=== PATIENT | female | born 1990 | race Caucasian/White ===

== ENCOUNTER → 2020-10-21 14:17 | Outpatient (BNVA) | payer OTHER, SELFPAY | PROVIDERS: Visit Provider Obstetrics & Gynecology | DX: Z76.89 Persons encountering health services in other specified circumstances (principal) ==

== ENCOUNTER → 2020-10-28 08:51 | Outpatient (BNVA) | payer OTHER, SELFPAY | PROVIDERS: Visit Provider Obstetrics & Gynecology | DX: Z30.9 Encounter for contraceptive management, unspecified (principal) | CPT/HCPCS: 99212 ==

== ENCOUNTER → 2021-07-28 14:59 | Outpatient (BNVA) | payer OTHER, SELFPAY | PROVIDERS: PCP Internal Medicine; Visit Provider Obstetrics & Gynecology ==

== ENCOUNTER 2021-10-18 08:04 | Outpatient (REF) | payer OTHER, SELFPAY ==
[2021-10-18 08:16] LABS: MANUAL DIFF FLAG NO
[2021-10-18 10:04] LABS: Basophils Percent Auto 0.5 % (0-2); Eosinophils Absolute Auto 0.1 X10*3/uL (0.0-0.4); Eosinophils Percent Auto 0.7 % (0-4); Hematocrit 39.9 % (37.0-47.0); Imm Gran Abs Auto 0.04 X10*3/uL (0.00-0.03); Imm Gran Pct Auto 0.5 % (0.0-0.4); Lymphocytes Absolute Auto 2.2 X10*3/uL (1.2-4.9); Lymphocytes Percent Auto 29.6 % (20-40); Mean Corpuscular HGB Conc 32.6 g/dl (31.0-35.0); Mean Corpuscular Hemoglobin 29.5 pg (27.0-33.0); Mean Corpuscular Volume 90.5 fL (80.0-98.0); Mean Platelet Volume 9.7 fL (9.4-12.3); Monocytes Absolute Auto 0.5 X10*3/uL (0.1-1.2); Monocytes Percent Auto 6.1 % (2-11); Neutrophils Absolute Auto 4.8 x10*3/uL (2.0-8.3); Neutrophils Percent Auto 62.6 % (45-73); Platelet Count 295 X10*3/uL (160-400); Red Blood Count 4.41 X10*6/uL (4.20-5.50); White Blood Count 7.6 X10*3/uL (4.8-10.8)
[2021-10-18 10:29] LABS: Alanine Aminotransferase 10 U/L (0-31); Albumin Level 4.3 g/dL (3.5-5.0); Alkaline Phosphatase 56 U/L (39-117); Anion Gap 12 (12-20); Aspartate Amino Transferase 14 U/L (5-31); Bilirubin Total 0.6 mg/dL (0.0-1.0); Blood Urea Nitrogen 11 mg/dL (9-16); Carbon Dioxide 23 mmol/L (22-29); Chloride 106 mmol/L (96-108); Cholesterol 156 mg/dL; Estimated Glomerular Filt Rate > 60; Glucose Fasting 80 mg/dL (60-99); HDL Cholesterol 38 mg/dL; LDL Cholesterol Calculated 94 mg/dl; Potassium 4.2 mmol/L (3.3-5.1); Sodium 137 mmol/L (135-145); Total Protein 6.8 g/dL (6.5-8.0); Triglycerides 124 mg/dL
[2021-10-18 10:35] LABS: Thyroid Stimulating Hormone 0.97 uIU/mL (0.32-4.0)
== END 2021-10-18 08:05 | disposition home or self-care (01) ==
LOC: HO.LAB 08:04
PROVIDERS: PCP Internal Medicine; Visit Provider Internal Medicine
DX: Z00.00 Encounter for general adult medical examination without abnormal findings (principal); E11.9 Type 2 diabetes mellitus without complications; E03.9 Hypothyroidism, unspecified
CPT/HCPCS: 36415; 80053; 80061; 84443; 85025

== ENCOUNTER 2022-04-08 13:20 | Outpatient (REF) | payer OTHER, SELFPAY ==
[2022-04-10 12:41] LABS: Rubella IgG Antibody 1.71 Index
[2022-04-10 21:56] LABS: Mumps Virus IgG Antibody <9.00 AU/mL
== END 2022-04-08 13:21 | disposition home or self-care (01) ==
LOC: HO.LAB 13:20
PROVIDERS: PCP Internal Medicine; Visit Provider Internal Medicine
DX: Z01.84 Encounter for antibody response examination (principal); Z20.2 Contact with and (suspected) exposure to infections with a predominantly sexual mode of transmission
CPT/HCPCS: 36415; 86735; 86762; 86765

== ENCOUNTER 2022-09-19 09:18 | Outpatient (REF) | payer OTHER, SELFPAY ==
[2022-09-19 09:49] LABS: MANUAL DIFF FLAG NO
[2022-09-19 11:30] LABS: Basophils Percent Auto 0.4 % (0-2); Eosinophils Percent Auto 0.6 % (0-4); Hematocrit 42.1 % (37.0-47.0); Hemoglobin 14.2 g/dl (12.0-16.0); Imm Gran Abs Auto 0.03 X10*3/uL (0.00-0.03); Imm Gran Pct Auto 0.4 % (0.0-0.4); Lymphocytes Absolute Auto 2.2 X10*3/uL (1.2-4.9); Lymphocytes Percent Auto 31.4 % (20-40); Mean Corpuscular HGB Conc 33.7 g/dl (31.0-35.0); Mean Platelet Volume 9.9 fL (9.4-12.3); Monocytes Absolute Auto 0.4 X10*3/uL (0.1-1.2); Monocytes Percent Auto 5.4 % (2-11); Neutrophils Absolute Auto 4.4 x10*3/uL (2.0-8.3); Neutrophils Percent Auto 61.8 % (45-73); Platelet Count 309 X10*3/uL (160-400); Red Blood Count 4.73 X10*6/uL (4.20-5.50); Red Cell Distribution Width 12.7 % (11.0-16.0); White Blood Count 7.1 X10*3/uL (4.8-10.8)
[2022-09-19 12:45] LABS: Alanine Aminotransferase 9 U/L (0-31); Albumin Level 4.6 g/dL (3.5-5.0); Alkaline Phosphatase 60 U/L (39-117); Anion Gap 15 (12-20); Aspartate Amino Transferase 15 U/L (5-31); Bilirubin Total 0.4 mg/dL (0.0-1.0); Blood Urea Nitrogen 10 mg/dL (9-16); Calcium 9.5 mg/dL (8.4-10.2); Carbon Dioxide 24 mmol/L (22-29); Chloride 104 mmol/L (96-108); Cholesterol 163 mg/dL; Estimated Glomerular Filt Rate > 60; Glucose Fasting 75 mg/dL (60-99); HDL Cholesterol 45 mg/dL; LDL Cholesterol Calculated 98 mg/dl; Potassium 4.2 mmol/L (3.3-5.1); Sodium 139 mmol/L (135-145); Total Protein 7.3 g/dL (6.5-8.0); Triglycerides 101 mg/dL
[2022-09-19 12:52] LABS: Thyroid Stimulating Hormone 1.55 uIU/mL (0.32-4.0)
== END 2022-09-19 09:19 | disposition home or self-care (01) ==
LOC: HO.LAB 09:18
PROVIDERS: PCP Internal Medicine; Visit Provider Internal Medicine
DX: Z13.0 Encounter for screening for diseases of the blood and blood-forming organs and certain disorders involving the immune mechanism (principal); E03.9 Hypothyroidism, unspecified; E78.5 Hyperlipidemia, unspecified; I10 Essential (primary) hypertension
CPT/HCPCS: 36415; 80053; 80061; 84443; 85025

== ENCOUNTER 2023-08-16 12:57 | Outpatient (AMB) | payer OTHER, SELFPAY ==
[2023-08-16 12:59] VITALS: BP 118/68; PULSE 75; O2SAT 97; BMI 26.8
--- NOTE | 2023-08-16 12:59 | MHC.PC.OV ---
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 Required: No Plate Grainer Apprentice: Not Required per policy Accompanied by: Self / Same As Patient Allergies No Known Allergies [No Known Allergies*] Allergy (Verified 08/16/23 12:59) Medication List - Last Reconciled 08/16/23 by Jose Antonio Guadarrama MD L norgest/e.estradiol-e.estrad 0.15 mg-30 mcg (84)/10 mcg (7) (Seasonique) 1 tab PO DAILY 3 months ondansetron HCl (Zofran) 4 mg PO Q8H PRN triamcinolone acetonide 0.5% 1 appl topical TID triamcinolone acetonide 0.1% 1 appl topical DAILY Tobacco use date assessed: 08/13/22 Dental Screening Dental Screen Date: 08/16/23 Did you have a dental visit in the last 12 months?: Yes Did you have a dental problem in the last 6 months where you did not have access to dental care?: No Was dental information given to patient?: Patient has dentist HPI Annual Exam HPI Details healthy [facility] Medical History Asthma Nausea Physical exam Surgical History No pertinent past surgical history Family History Mother No problems noted. Father No problems noted. Maternal Aunt Breast cancer Social History Housing: Apartment Alcohol intake: never Patient Tobacco Use Status: Never used Tobacco e-Cigarette/Vaping Use: Never Used Second Hand Smoke Exposure: No service: No Current occupational status: employed Gender identity: Female Cognitive needs: No Hearing needs: No Vision needs: No Female Reproductive History Menstrual Age of Menarche: 17 Questionnaire PHQ-9 Over the last 2 weeks, how often have you been bothered by any of the following problems? 1. Little interest or pleasure in doing things: several days 2. Feeling down, depressed, or hopeless: several days 3. Trouble falling or staying asleep, or sleeping too much: more than half the days 4. Feeling tired or having little energy: more than half the days 5. Poor appetite or overeating: more than half the days 6. Feeling bad about yourself - or that you are a failure or have let yourself or your family down: more than half the days 7. Trouble concentrating on things, such as reading the newspaper or watching television: more than half the days 8. Moving or speaking so slowly that other people could have noticed. Or the opposite - being so fidgety or restless that you have been moving around a lot more than usual: several days 9. Thoughts that you would be better off or of hurting yourself in some way: not at all Total score: 13 Depression Screening Interpretation: Negative 33323 - PHQ-9 Billing: Yes Source: Developed by Drs. Tarun Rowan, Ernestine Fine, Domingo Bass and colleagues, with an educational chaz from [employer]. Thrive Questionnaire Date Thrive assessed: 08/16/23 I am a: Patient What is your living situation today?: I have a steady place to live Within the past 12 months, did the food you bought not last and you didn't have the money to get more?: Never true Within the past 12 months, did you worry whether your food would run out before you got money to buy more?: Never true Do you have trouble paying for medicines?: No Do you have trouble getting transportation to medical appointments?: No Do you have trouble paying your heating and electricity bill?: No Do you have trouble taking care of your child, family member or friend?: No Do you have trouble with day-to-day activities such as bathing, preparing meals, shopping, managing finances, etc.?: No Are you currently unemployed and looking for a job?: No Are you interested in more education?: No Please select the resources that you would like help with: None AUDIT C Alcohol Use Questionnaire (AUDIT-C) 1. How often do you have a drink containing alcohol?: Never Total Score: 0 Score Reviewed/Action Taken: Yes EMELY-7 AMB Questionnaire EMELY-7 Date EMELY - 7 assessed: 08/16/23 Feeling nervous, anxious, or on edge: 1 = Several days Not being able to stop or control worryin = More than half the days Worrying too much about different things: 2 = More than half the days Trouble relaxin = More than half the days Being so restless that it is hard to sit still: 2 = More than half the days Becoming easily annoyed or irritable: 2 = More than half the days Feeling afraid as if something awful might happen: 1 = Several days Total EMELY-7 score (0-4 normal; 5-9 mild; 10-14 moderate; 15-21 severe): 12 Source: Developed by Drs. Tarun Rowan, Ernestine Fine, Domingo Bass and colleagues, with an educational chaz from [employer]. EMELY-7 Assessment Billing EMELY-7 Assessment Tool: EMELY-7 Assessment 78781 Review of Systems Const Denies chills, Denies fatigue, Denies headache(s) and Denies weight loss Eyes Denies change in vision, Denies diplopia and Denies eye pain ENT Denies vertigo, Denies dizziness, Denies headache(s) and Denies nasal discharge Card Denies chest pain, Denies rapid heart rate and Denies dyspnea on exertion Resp Denies chest congestion, Denies cough, Denies pain with cough and Denies dyspnea on exertion GI Denies abdominal pain, Denies hematochezia and Denies change in bowel habits Musc Denies myalgias, Denies arthralgias and Denies joint swelling Skin/Breast Denies lesions and Denies unusual bruising Neuro Denies vertigo, Denies dizziness, Denies headache(s) and Denies focal weakness Endo Denies fatigue Physical exam (Primary Care) Vital Signs: Last Vital Signs Pulse 75 08/16/23 12:59 BP 118/68 08/16/23 12:59 Pulse Ox 97 08/16/23 12:59 Oxygen Delivery Method Room Air 08/16/23 12:59 BMI result Body Mass Index 26.8 Tobacco/Smoking Status: Tobacco use Status Tobacco use date assessed 08/13/22 08/16/23 13:05 Patient Tobacco Use Status Never used Tobacco 08/16/23 13:05 e-Cigarette/Vaping Use Never Used 08/16/23 13:05 PHQ-9: PHQ-9 Score PHQ-9: Total score 13 08/16/23 13:05 Depression Screening Interpretation: Negative Thrive Assessment: Date of Thrive Assessment Date Thrive assessed 08/16/23 08/16/23 13:05 Const General: cooperative, healthy appearing and no acute distress Orientation/consciousness: oriented to person, oriented to place and oriented to time HENMT Head: Yes normal to inspection, Yes normocephalic and Yes atraumatic Mouth: Normal oral and palatal mucosa present and tongue normal Throat: Yes posterior oropharynx normal and Yes uvula midline Eyes General: appearance normal, both eyes and all related structures Neck Neck: Yes normal visual inspection, Yes full ROM and Yes no lymphadenopathy Thyroid: Thyroid normal Carotids: normal carotid upstroke Chest Chest palpation & inspection: normal inspection of the chest Resp Effort & Inspection: normal respiratory effort and able to speak in complete sentences Auscultation: clear to auscultation bilaterally Cardio Jugular venous distension: no JVD Palpation: normal PMI Rate: regular rate Rhythm: regular rhythm Heart sounds: S1 normal heart sound present and S2 normal heart sound present GI Inspection: Yes normal to inspection Palpation (GI): Soft to palpation and No hepatosplenomegaly present Auscultation: normal bowel sounds General: Yes no CVA tenderness Back/Spine/Pelvis Back: no CVA tenderness Skin General skin exam: no rashes or lesions noted Neuro General: oriented to person, oriented to place and oriented to time Extrem General: Yes normal to inspection and Yes full ROM Assessment and Plan Assessment & Plan (1) Physical exam: Code(s): Z00.00 - Encounter for general adult medical examination without abnormal findings Plan: do labs (2) Acute anxiety: Code(s): F41.9 - Anxiety disorder, unspecified Plan: rx Orders: Orders Comprehensive [place]. Panel Fast Today N28.9 - Disorder of kidney and ureter, unspecified Thyroid Stimulating Hormone Today E03.9 - Hypothyroidism, unspecified Lipid Panel Today E78.5 - Hyperlipidemia, unspecified Complete Blood Count Auto Diff Today D64.9 - Anemia, unspecified Medications: New citalopram 20 mg PO DAILY 30 tabs 3RF Coding Level of Care Code Est Pt Prev Care 18-39y(77164) Diagnoses Physical exam Z00.00 Acute anxiety F41.9 Additional Codes EMELY-7 Assessment Billing - EMELY-7 Assessment Tool: EMELY-7 Assessment 94405 ([id number])
== END 2023-08-16 13:18 | disposition home or self-care (01) ==
PROVIDERS: PCP Internal Medicine; Visit Provider Internal Medicine
DX: Z00.00 Encounter for general adult medical examination without abnormal findings (principal); F41.9 Anxiety disorder, unspecified
CPT/HCPCS: 99395

== ENCOUNTER 2023-09-25 09:54 | Outpatient (REF) | payer OTHER, SELFPAY ==
[2023-09-25 10:33] LABS: MANUAL DIFF FLAG NO
[2023-09-25 11:06] LABS: Basophils Absolute Auto 0.1 X10*3/uL (0.0-0.2); Basophils Percent Auto 0.8 % (0-2); Eosinophils Absolute Auto 0.1 X10*3/uL (0.0-0.4); Eosinophils Percent Auto 0.8 % (0-4); Hematocrit 41.3 % (37.0-47.0); Hemoglobin 14.1 g/dl (12.0-16.0); Imm Gran Abs Auto 0.02 X10*3/uL (0.00-0.03); Imm Gran Pct Auto 0.3 % (0.0-0.4); Lymphocytes Absolute Auto 2.3 X10*3/uL (1.2-4.9); Lymphocytes Percent Auto 35.1 % (20-40); Mean Corpuscular HGB Conc 34.1 g/dl (31.0-35.0); Mean Corpuscular Hemoglobin 30.7 pg (27.0-33.0); Mean Corpuscular Volume 89.8 fL (80.0-98.0); Mean Platelet Volume 9.3 fL (9.4-12.3); Monocytes Absolute Auto 0.4 X10*3/uL (0.1-1.2); Monocytes Percent Auto 6.5 % (2-11); Neutrophils Absolute Auto 3.7 x10*3/uL (2.0-8.3); Neutrophils Percent Auto 56.5 % (45-73); Platelet Count 274 X10*3/uL (160-400); Red Cell Distribution Width 12.6 % (11.0-16.0); White Blood Count 6.6 X10*3/uL (4.8-10.8)
[2023-09-25 11:46] LABS: Alanine Aminotransferase 11 U/L (0-31); Albumin Level 4.3 g/dL (3.5-5.0); Alkaline Phosphatase 60 U/L (39-117); Anion Gap 13 (12-20); Aspartate Amino Transferase 14 U/L (5-31); Bilirubin Total 0.4 mg/dL (0.0-1.0); Blood Urea Nitrogen 13 mg/dL (9-16); Calcium 9.7 mg/dL (8.4-10.2); Carbon Dioxide 24 mmol/L (22-29); Chloride 105 mmol/L (96-108); Cholesterol 156 mg/dL (<200); Estimated Glomerular Filt Rate > 60; Glucose Fasting 76 mg/dL (60-99); HDL Cholesterol 41 mg/dL (>40); LDL Cholesterol Calculated 94 mg/dL (<100); Potassium 3.9 mmol/L (3.3-5.1); Sodium 138 mmol/L (135-145); Total Protein 7.1 g/dL (6.5-8.0); Triglycerides 107 mg/dL (<150)
[2023-09-25 11:53] LABS: Thyroid Stimulating Hormone 1.18 uIU/mL (0.32-4.0)
== END 2023-09-25 09:55 | disposition home or self-care (01) ==
LOC: HO.LAB 09:54
PROVIDERS: PCP Internal Medicine; Visit Provider Internal Medicine
DX: E03.9 Hypothyroidism, unspecified (principal); E78.5 Hyperlipidemia, unspecified; D64.9 Anemia, unspecified; N28.9 Disorder of kidney and ureter, unspecified
CPT/HCPCS: 36415; 80053; 80061; 84443; 85025

== ENCOUNTER 2023-11-24 10:09 | Outpatient (AMB) | payer OTHER, SELFPAY ==
[2023-11-24 11:27] VITALS: BP 120/80; PULSE 72; TEMP 36.3; O2SAT 97; BMI 27.4
--- NOTE | 2023-11-24 11:27 | AM.OFFWIN_ITS ---
Intake Vital Signs 11/24/23 11:27 Height 5 ft 6 in Weight 170 lb BMI 27.4 BP 120/80 Blood Pressure Location Lt brachial Position Sitting Pulse 72 Pulse Source Pulse Oximeter Temp 97.3 F Temp Source Temporal Artery Scan Pulse Oximetry (%) 97 Oxygen Delivery Method Room Air Intake Visit Reasons: EST/cough ([phone]) Intake Note: pt is here today for cough started 10/31 Patient Tobacco Use Status: Never used Tobacco Allergies No Known Allergies [No Known Allergies*] Allergy (Verified 11/24/23 11:55) Medication List - Last Reconciled 11/24/23 by Zonia Mc, CARDING MACHINE FEEDER-BC citalopram 20 mg PO DAILY L norgest/e.estradiol-e.estrad 0.15 mg-30 mcg (84)/10 mcg (7) (Seasonique) 1 tab PO DAILY 3 months ondansetron HCl (Zofran) 4 mg PO Q8H PRN triamcinolone acetonide 0.5% 1 appl topical TID triamcinolone acetonide 0.1% 1 appl topical DAILY Do you need a note to return to daycare/school/sports/work: Yes HPI HPI Comments History of Present Illness Details here today c/o cough that has been present since 10/31/23 has asthma, no current inhaler as her sx are induced by sports has been using otc meds w/o relief cough is constant, keeping her up at HS sicks 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 voice is also hoarse UTD on vaccines denies fever, chills, nasal drainage, chest pain. [facility] Medical History Asthma Nausea Physical exam Surgical History No pertinent past surgical history Family History Mother No problems noted. Father No problems noted. Maternal Aunt Breast cancer Social History Housing: Apartment Alcohol intake: never Patient Tobacco Use Status: Never used Tobacco e-Cigarette/Vaping Use: Never Used Second Hand Smoke Exposure: No service: No Current occupational status: employed Gender identity: Female Cognitive needs: No Hearing needs: No Vision needs: No Female Reproductive History Menstrual Age of Menarche: 17 Review of Systems Const All systems reviewed & are unremarkable except as noted in HPI and below Physical Exam Vital Signs: Last Vital Signs Temp 97.3 F 11/24/23 11:27 Pulse 72 11/24/23 11:27 BP 120/80 11/24/23 11:27 Pulse Ox 97 11/24/23 11:27 Oxygen Delivery Method Room Air 11/24/23 11:27 BMI result Body Mass Index 27.4 Const Other: awake alert NAD conjunctica clear bilat TM intact, clear bilat nares and turbinates clear bilat pharynx WNL RRR LS dim throughout, tight cough, paroxysmal noted during exam Assessment & Plan Assessment & Plan (1) Asthma exacerbation: Code(s): J45.901 - Unspecified asthma with (acute) exacerbation Qualifiers: Asthma severity: mild Asthma persistence: intermittent Qualified Code(s): J45.21 - Mild intermittent asthma with (acute) exacerbation Plan: . Medications: New azithromycin For 250 mg dose pack: take 500 mg today (day 1), then 250 mg for 4 days (days 2-5) PO 5 days 6 tabs 0RF albuterol sulfate 90 mcg/actuation 2 puffs inhalation Q4-6H 30 days PRN 8.5 grams 0RF shortness of breath or wheezing prednisone 50 mg PO DAILY 5 days 5 tabs 0RF Patient Instructions: take meds as directed, edu on reasons to seek addl care Coding Level of Care Code Est Pt Level 3 (23869) Diagnoses Mild intermittent asthma with exacerbation J45.21 Asthma severity: mild Asthma persistence: intermittent
== END 2023-11-24 12:41 | disposition home or self-care (01) ==
PROVIDERS: PCP Internal Medicine; Visit Provider Nurse Practitioner Family
DX: J45.21 Mild intermittent asthma with (acute) exacerbation (principal)
CPT/HCPCS: 99213

== ENCOUNTER 2023-12-11 09:11 | Outpatient (AMB) | payer OTHER, SELFPAY ==
--- NOTE | 2023-12-11 10:14 | AM.OFFWIN_ITS ---
Intake Vital Signs 12/11/23 10:15 Height 5 ft 6 in Weight 169 lb BMI 27.3 BP 110/78 Blood Pressure Location Lt brachial Position Sitting Pulse 83 Pulse Source Pulse Oximeter Pulse Oximetry (%) 97 Oxygen Delivery Method Room Air Intake Visit Reasons: EP, right rib pain due to coughing Intake Note: Patient here because she recently had bronchitis and had cough attack and started having right sided rib pain. She is having issues pushing, pulling, taking deep breathes, bending and pulling herself up. Patient Tobacco Use Status: Never used Tobacco Allergies No Known Allergies [No Known Allergies*] Allergy (Verified 12/11/23 10:17) Do you need a note to return to daycare/school/sports/work: No HPI EP, right rib pain due to coughing HPI Details Patient is a 33-year-old female comes to the walk-in clinic complaining of right rib area pain after extensive amounts of coughing due to apparent bronchitis. She denies current severe cough, uncontrolled cough, coughing up blood, chest pain, shortness of breath, fever or chills, weakness or dizziness or vertigo, fast heart rate, fever or chills, myalgias or malaise, or other significant associated symptoms. [facility] Medical History Asthma Nausea Physical exam Surgical History No pertinent past surgical history Family History Mother No problems noted. Father No problems noted. Maternal Aunt Breast cancer Social History Housing: Apartment Alcohol intake: never Patient Tobacco Use Status: Never used Tobacco e-Cigarette/Vaping Use: Never Used Second Hand Smoke Exposure: No service: No Current occupational status: employed Gender identity: Female Cognitive needs: No Hearing needs: No Vision needs: No Female Reproductive History Menstrual Age of Menarche: 17 Review of Systems Const All systems reviewed & are unremarkable except as noted in HPI and below Physical Exam Vital Signs: Last Vital Signs Pulse 83 12/11/23 10:15 BP 110/78 12/11/23 10:15 Pulse Ox 97 12/11/23 10:15 Oxygen Delivery Method Room Air 12/11/23 10:15 BMI result Body Mass Index 27.3 Const General: cooperative, no acute distress, alert, awake, Physically active and well groomed; No comfortable, anxious, diaphoretic, intoxicated appearing, poor hygiene or tired appearing Nutritional Appearance: average body habitus Orientation/consciousness: patient oriented x3 Limitations: no limitations Neck Neck: Yes normal visual inspection, Yes no lymphadenopathy, Yes trachea midline, Yes supple and No anterior neck swelling Chest Chest palpation & inspection: normal inspection of the chest, abnormal palpation of chest wall, localized rib tenderness with anteroposterior compression (right side, mid clavicular under breast) and tenderness Resp Effort & Inspection: normal respiratory effort, able to speak in complete senten gavi, normal respiratory pattern, no audible wheezes, no cough, respiratory effort not decreased, no grunting, not labored, no nasal flaring, no pursed lip breathing, no respiratory distress, no retractions, no segmental paradox chest wall movement, no stridor, not tachypneic, no tripod positioning, no use of accessory muscles, No prolonged expiratory phase and symmetric chest movement Auscultation: clear to auscultation bilaterally, no crackles, no rales, no rhonchi, no wheezes, lung sounds not diminished and No rub present Cardio Palpation: normal PMI Rate: regular rate Rhythm: regular rhythm Heart sounds: S1 normal heart sound present and S2 normal heart sound present Skin Other: Good color, warm and dry Neuro General: patient oriented x3 Psych Appearance: grossly normal Mental Status: mental status grossly normal Speech and movement: Normal speech and movement present Affect: normal affect Attitude: cooperative Thought process: Normal thought process present Insight: Good insight present (Psych) Judgement: Good judgement present (Psych) Results Reviewed Results Reviewed: Plain film x-ray of the right-sided ribs and one view of the chest shows no acute trauma on wet read, although there is some mild atelectasis which could be indicative of her recent bronchitis. Results relayed to patient, and pending radiologist read Assessment & Plan Assessment & Plan (1) Rib pain on right side: Code(s): R07.81 - Pleurodynia Plan: Patient with resolved apparent bronchitis with persistant right side chest wall discomfort. Her plain film xray looks like atelectasis with no clear consolidation, and I do not see a rib injury on my wet read. Pending radiologist read. Due to the fact that her cough has resolved and she has no respiratory issues or fever or other indication of infection, this seems to be muscular in nature- chest wall strain versus localized rib contusion from severe cough. A PE was considered, but there is no dyspnea or shortness of breath and her vitals are normal. We discussed continuing heat and rest at this point, and she was instructed on deep incentive breathing exercises to prevent a pneumonia developing. I will write her for an NSAID and a muscle relaxer. She should follow up if her symptoms persist or worsen at all and she was advised to go to the emergency department with worrisome symptoms. She understood and agreed with this plan. Orders: Orders XR ribs RT min 3V w CXR1V 12/11/23 R07.81 - Pleurodynia Medications: New naproxen 500 mg PO BID PRN 30 tabs 0RF pain 14 days cyclobenzaprine 5 mg PO TID PRN 14 tabs 0RF muscle spasm Coding Level of Care Code Est Pt Level 4 (46372) Diagnoses Rib pain on right side R07.81
[2023-12-11 10:15] VITALS: BP 110/78; PULSE 83; O2SAT 97; BMI 27.3
== END 2023-12-11 12:20 | disposition home or self-care (01) ==
PROVIDERS: PCP Internal Medicine; Visit Provider Physician Assistant Medical
DX: R07.81 Pleurodynia (principal)
CPT/HCPCS: 99051; 99214

== ENCOUNTER 2023-12-11 11:06 | Outpatient (REF) | payer OTHER, SELFPAY ==
--- NOTE | ~2023-12-11 | XR_ITS ---
EXAMINATION: XR RIBS, RIGHT CLINICAL INFORMATION: Pleurodynia COMPARISON: Graft from 05/13/2014 TECHNIQUE: 4 views of the right ribs were obtained. FINDINGS: Slight bibasilar atelectasis. No pneumothorax. Trachea is midline. Cardiac mediastinal silhouette is not enlarged. No large pleural effusion. Soft tissues are unremarkable. Osseous structures are intact. No acute visualized right-sided rib fractures. XR/XR ribs RT min 3V w CXR1V IMPRESSION: 1. Slight bibasilar atelectasis. 2. No acute visualized right-sided rib fractures.
== END 2023-12-11 11:07 | disposition home or self-care (01) ==
LOC: HO.HMGCX 11:06
PROVIDERS: PCP Internal Medicine; Visit Provider Physician Assistant Medical
DX: R07.81 Pleurodynia (principal)
CPT/HCPCS: 71101

== ENCOUNTER 2024-03-15 14:46 | Outpatient (AMB) | payer OTHER, SELFPAY ==
--- NOTE | 2024-03-15 15:31 | A.OFFVIS_ITS ---
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 Materials Associate Required: No Information Interpreted: clinical only Child Protection Specialist: Child Protection Specialist Present Allergies No Known Allergies [No Known Allergies*] Allergy (Verified 03/15/24 15:34) Medication List - Last Reconciled 03/15/24 by Irena Rivera CNM albuterol sulfate 90 mcg/actuation 2 puffs inhalation Q4-6H PRN 30 days citalopram 20 mg PO DAILY cyclobenzaprine 5 mg PO TID PRN L norgest/e.estradiol-e.estrad 0.15 mg-30 mcg (84)/10 mcg (7) 1 tab PO DAILY 3 months naproxen 500 mg PO BID PRN 14 days Is last menstrual period known: No (2 mth age,because BCP) Do you need a note to return to daycare/school/sports/work: No 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 She had a very severe tear with the of her daughter the took a very very long time to heal she feels it took almost a year and every time she attempted intimacy or even urinated it burned and was extremely sensitive it still can feel sensitive now when she gets her menses. What made it better was when she stops and was placed on the combination control pills.. She thought her last Pap smear was done in 2021 but there has no Pap smear in this current computer system which dates to 2020 so we will do a Pap today. [facility] Medical History Asthma Nausea Physical exam Surgical History No pertinent past surgical history Family History Mother No problems noted. Father No problems noted. Maternal Aunt Breast cancer Social History Housing: Apartment Alcohol intake: never Patient Tobacco Use Status: Never used Tobacco e-Cigarette/Vaping Use: Never Used Second Hand Smoke Exposure: No service: No Current occupational status: employed Gender identity: Female Cognitive needs: No Hearing needs: No Vision needs: No Female Reproductive History Menstrual Age of Menarche: 17 Duration of menses: <3 days control method: pills Total pregnancies: 1 Full term: 1 History of abnormal pap smear: No (previous pap neg.2021 per patient) Physical Exam Vital Signs: Last Vital Signs BP 118/70 03/15/24 15:32 BMI result Body Mass Index 27.3 Const General: healthy appearing, comfortable, no acute distress, well developed and alert Nutritional Appearance: average body habitus Orientation/consciousness: patient oriented x3 Limitations: no limitations HEENT Head: Yes normocephalic Neck Neck: Yes normal visual inspection Chest Chest palpation & inspection: normal inspection of the chest Breast/axilla inspection: normal inspection of the breasts and normal inspection of the axillae Breast/axilla palpation: normal palpation of the breasts and normal palpation of the axillae Resp Effort & Inspection: normal respiratory effort GI Inspection: Yes normal to inspection, No Abdominal wall edema and No distended Palpation (GI): Soft to palpation and nontender Other: Area previous obstetrical laceration has epithelialized and healed well the patient still is very tense with the exam as per a PTSD response from the length of time it took to heal Vagina pink and moist her cervix pink and moist . There is vertical cervical laceration completely through the cervix at 06:00 o'clock that has epithelialized well. Uterus slightly difficult to feel secondary to patient tensing with the exam feels midposition does not feel enlarged. Adnexa nontender patient has constantly tense muscle tone so she was able to tense a little bit with a Kegel but she had a baseline tension. General: Yes bladder normal to palpation External Female Exam: normal external appearance and normal appearance of the urethra Speculum Exam - Vagina: normal appearance of the vagina, normal palpation and normal vaginal discharge Speculum Exam - Cervix: normal appearance of the cervix, normal palpation and nontender Bimanual exam- vagina & uterus: normal bimanual exam, normal palpation, uterine size normal, bladder normal to palpation, consistency normal, normal palpation, uterine mobility normal, uterine shape normal, No Cervical tenderness present, non-tender and no cervical motion tenderness Bimanual Exam- Adnexa, other: normal adnexae, no masses, normal and No adnexal tenderness Neuro General: patient oriented x3 Assessment & Plan Assessment & Plan (1) Well woman exam with routine gynecological exam: Code(s): Z01.419 - Encounter for gynecological examination (general) (routine) without abnormal findings (2) Cervical cancer screening: Comment: pap neg 2019./Pap smear done 03/15/2024 Code(s): Z12.4 - Encounter for screening for malignant neoplasm of cervix (3) Contraceptive management: Comment: very happy on Seasonique/reviewed potential for unexpected breakthrough bleeding and other side effects. Code(s): Z30.9 - Encounter for contraceptive management, unspecified (4) Obstetric vaginal laceration: Comment: Also cervical. Patient says the perineal laceration took more than a year to re ally heal, ameliorated by cessation of starting with combination OCPs with estrogen./reviewed the reality of PTSD from this experience. Code(s): O71.4 - Obstetric high vaginal laceration alone Plan -----Discussed in this visit the following: healthy balanced diet, regular and consistent exercise, getting recommended health screens, doing the best she can for her particular health concerns, kegel exercises, pap smear screening and followup recommendations, mammography screening and SBE, normal changes in cycles in her life stage--- . Pap smear was done because initially was difficult to find her previous Pap pre dated the current computer system. Reviewed her combination OCP taking on a cyclical basis to allow for treatment menses. She does experience some cramping and sometimes a little bit of discharge before her menses given this and the proclivity for many women to have a breakthrough bleed when they least expected with this regimen I did warn her to expect this and who always carry extra protection/tampon with her to be ready just in case. She is very good about not skipping pills and to make sure that she gets her refills before the pack has run out. Prescription sent for 3 month at a time with 4 refills today. -reviewed that it is extremely common and normal for anyone who has had a difficult delivery or repair or prolonged healing time to have some level of PTSD after the fact and just to be aware that it is a common affect I did offer to show her her cervix which is completely last rate it posteriorly at 06:00 o'clock just so that for future childbearing she would have some awareness of what it looks like in case there is any discussions about this but she declined and in any case she has not planning on having another child. I also discussed with her more long-term methods of control such as a Mirena which given that she is more uncomfortable were laceration is when she has menses would might alleviate this but it also may not because it does not have estrogen as well. We will see her in 1 year I reviewed danger signs of OCPs she is well- versed in taking them at this point. Medications: Refilled L norgest/e.estradiol-e.estrad 0.15 mg-30 mcg (84)/10 mcg (7) 1 tab PO DAILY 3 months 90 ea 4RF Coding Level of Care Code Est Pt Prev Care 18-39y(85649) Diagnoses Well woman exam with routine gynecological exam Z01.419 Cervical cancer screening Z12.4 Contraceptive management Z30.9 Obstetric vaginal laceration O71.4
[2024-03-15 15:32] VITALS: BP 118/70; BMI 27.3
== END 2024-03-15 16:47 | disposition home or self-care (01) ==
PROVIDERS: Visit Provider Advanced Practice Midwife
DX: Z01.419 Encounter for gynecological examination (general) (routine) without abnormal findings (principal); Z12.4 Encounter for screening for malignant neoplasm of cervix; Z30.9 Encounter for contraceptive management, unspecified; O71.4 Obstetric high vaginal laceration alone
CPT/HCPCS: 99395

== ENCOUNTER 2024-03-15 14:46 | Outpatient (REF) | payer OTHER, SELFPAY ==
[2024-03-23 03:59] LABS: HPV mRNA E6/E7 rflx Not Detected (Not Detected)
== END 2024-03-15 14:47 | disposition home or self-care (01) ==
LOC: HO.LAB 14:46
PROVIDERS: Visit Provider Advanced Practice Midwife
DX: Z01.419 Encounter for gynecological examination (general) (routine) without abnormal findings (principal); Z11.51 Encounter for screening for human papillomavirus (HPV)
CPT/HCPCS: 87624; 88142; 99395

== ENCOUNTER 2024-07-04 10:58 | Outpatient (AMB) | payer OTHER, SELFPAY ==
--- NOTE | 2024-07-04 11:04 | MHC.PC.OV ---
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 Accompanied by: Daughter Allergies No Known Allergies [No Known Allergies*] Allergy (Verified 07/04/24 11:11) Medication List - Last Reconciled 07/04/24 by Jose Antonio Guadarrama MD albuterol sulfate 90 mcg/actuation 2 puffs inhalation Q4-6H PRN 30 days citalopram 20 mg PO DAILY cyclobenzaprine 5 mg PO TID PRN L norgest/e.estradiol-e.estrad 0.15 mg-30 mcg (84)/10 mcg (7) 1 tab PO DAILY 3 months naproxen 500 mg PO BID PRN 14 days Tobacco use date assessed: 07/04/24 Dental Screening Dental Screen Date: 07/04/24 Did you have a dental visit in the last 12 months?: Yes Did you have a dental problem in the last 6 months where you did not have access to dental care?: No Was dental information given to patient?: Patient has dentist HPI Itchy and swollen armpits and sensitive breasts HPI Details infection both axillae due to shaving PFSH Medical History Asthma Nausea Physical exam Surgical History No pertinent past surgical history Family History Mother No problems noted. Father No problems noted. Maternal Aunt Breast cancer Social History Housing: Apartment Alcohol intake: never Patient Tobacco Use Status: Never used Tobacco e-Cigarette/Vaping Use: Never Used Second Hand Smoke Exposure: No service: No Current occupational status: employed Gender identity: Female Cognitive needs: No Hearing needs: No Vision needs: No Female Reproductive History Menstrual Age of Menarche: 17 Questionnaire PHQ-9 Over the last 2 weeks, how often have you been bothered by any of the following problems? 1. Little interest or pleasure in doing things: several days 2. Feeling down, depressed, or hopeless: several days 3. Trouble falling or staying asleep, or sleeping too much: more than half the days 4. Feeling tired or having little energy: more than half the days 5. Poor appetite or overeating: more than half the days 6. Feeling bad about yourself - or that you are a failure or have let yourself or your family down: more than half the days 7. Trouble concentrating on things, such as reading the newspaper or watching television: more than half the days 8. Moving or speaking so slowly that other people could have noticed. Or the opposite - being so fidgety or restless that you have been moving around a lot more than usual: several days 9. Thoughts that you would be better off or of hurting yourself in some way: not at all Total score: 13 Depression Screening Interpretation: Negative Depression Screening Done: Yes 83123 - PHQ-9 Billing: Yes Source: Developed by Drs. Tarun Rowan, Ernestine Fine, Domingo Bass and colleagues, with an educational chaz from [employer]. Thrive Questionnaire Date Thrive assessed: 07/04/24 I am a: Patient What is your living situation today?: I have a steady place to live Within the past 12 months, did the food you bought not last and you didn't have the money to get more?: Never true Within the past 12 months, did you worry whether your food would run out before you got money to buy more?: Never true Do you have trouble paying for medicines?: No Do you have trouble getting transportation to medical appointments?: No Do you have trouble paying your heating and electricity bill?: No Do you have trouble taking care of your child, family member or friend?: No Do you have trouble with day-to-day activities such as bathing, preparing meals, shopping, managing finances, etc.?: No Are you currently unemployed and looking for a job?: No Are you interested in more education?: No Please select the resources that you would like help with: None Currently or been in a relationship where the following occur: No concerns reported THRIVE Score: 0 AUDIT C Alcohol Use Questionnaire (AUDIT-C) 1. How often do you have a drink containing alcohol?: Never Total Score: 0 Score Reviewed/Action Taken: Yes EMELY-7 AMB Questionnaire EMELY-7 Date EMELY - 7 assessed: 07/04/24 Feeling nervous, anxious, or on edge: 1 = Several days Not being able to stop or control worryin = More than half the days Worrying too much about different things: 3 = Nearly every day Trouble relaxin = More than half the days Being so restless that it is hard to sit still: 2 = More than half the days Becoming easily annoyed or irritable: 2 = More than half the days Feeling afraid as if something awful might happen: 1 = Several days Total EMELY-7 score (0-4 normal; 5-9 mild; 10-14 moderate; 15-21 severe): 13 Source: Developed by Drs. Tarun Rowan, Ernestine Fine, Domingo Bass and colleagues, with an educational chaz from [employer]. EMELY-7 Assessment Billing EMELY-7 Assessment Tool: EMELY-7 Assessment 78594 Review of Systems Const Denies chills, Denies headache(s) and Denies weight loss ENT Denies headache(s) Card Denies chest pain, Denies syncope, Denies irregular heart rhythm and Denies dyspnea Resp Denies chest congestion, Denies cough and Denies dyspnea GI Denies abdominal pain, Denies change in stool character, Denies nausea and Denies vomiting Musc Denies deformity and Denies joint swelling Neuro Denies syncope and Denies headache(s) Physical exam (Primary Care) Vital Signs: Last Vital Signs Pulse 82 07/04/24 11:10 BP 142/98 H 07/04/24 11:10 Pulse Ox 96 07/04/24 11:10 Oxygen Delivery Method Room Air 07/04/24 11:10 BMI result Body Mass Index 27.4 Tobacco/Smoking Status: Tobacco use Status Tobacco use date assessed 07/04/24 07/04/24 11:13 Patient Tobacco Use Status Never used Tobacco 07/04/24 11:06 e-Cigarette/Vaping Use Never Used 07/04/24 11:06 PHQ-9: PHQ-9 Score PHQ-9: Total score 13 07/04/24 11:13 Depression Screening Interpretation: Negative Thrive Assessment: Date of Thrive Assessment Date Thrive assessed 07/04/24 07/04/24 11:13 Currently or been in a relationship where the following occur: No concerns reported Const General: cooperative, comfortable, no acute distress and alert Neck Neck: Yes no lymphadenopathy Thyroid: Thyroid normal Resp Effort & Inspection: normal respiratory effort Auscultation: clear to auscultation bilaterally Percussion: percussion normal Cardio Jugular venous distension: no JVD Palpation: normal PMI Rate: regular rate Rhythm: regular rhythm Heart sounds: S1 normal heart sound present and S2 normal heart sound present GI Inspection: Yes normal to inspection Palpation (GI): No hepatosplenomegaly present Skin Other: cellulitis both axillae Extrem General: Yes no clubbing, cyanosis or edema Assessment and Plan Assessment & Plan (1) Cellulitis: Code(s): L03.90 - Cellulitis, unspecified Plan: rx sent Medications: New cephalexin 250 mg PO Q6H 20 caps 0RF clotrimazole-betamethasone 1-0.05 % 1 appl topical BID 2 weeks 45 grams 0RF Coding Level of Care Code Est Pt Level 3 (02427) Diagnoses Cellulitis L03.90 Additional Codes EMELY-7 Assessment Billing - EMELY-7 Assessment Tool: EMELY-7 Assessment 07895 ([id number])
[2024-07-04 11:10] VITALS: BP 142/98; PULSE 82; O2SAT 96; BMI 27.4
== END 2024-07-04 11:14 | disposition home or self-care (01) ==
PROVIDERS: PCP Internal Medicine; Visit Provider Internal Medicine
DX: L03.90 Cellulitis, unspecified (principal)
CPT/HCPCS: 99213

== ENCOUNTER 2024-08-24 12:46 | Outpatient (AMB) | payer OTHER, SELFPAY ==
[2024-08-24 12:49] VITALS: BP 126/72; PULSE 71; O2SAT 96; BMI 27.9
--- NOTE | 2024-08-24 12:49 | A.OFFPC_ITS ---
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 Plate Glass Required: No Accompanied by: Self / Same As Patient Allergies No Known Allergies [No Known Allergies*] Allergy (Verified 08/24/24 12:55) Medication List - Last Reconciled 08/24/24 by Jose Antonio Guadarrama MD albuterol sulfate 90 mcg/actuation 2 puffs inhalation Q4-6H PRN 30 days citalopram 20 mg PO DAILY L norgest/e.estradiol-e.estrad 0.15 mg-30 mcg (84)/10 mcg (7) 1 tab PO DAILY 3 months Tobacco use date assessed: 07/04/24 Dental Screening Dental Screen Date: 07/04/24 HPI PE HPI Details asthma; stable; worried about ADHD PFSH Medical History (Updated 08/24/24 @ 13:29 by Jose Antonio Guadarrama MD) Asthma Nausea Physical exam Surgical History No pertinent past surgical history Family History Mother No problems noted. Father No problems noted. Maternal Aunt Breast cancer Social History Housing: Apartment Alcohol intake: never Patient Tobacco Use Status: Never used Tobacco Tobacco use type: Cigarette e-Cigarette/Vaping Use: Never Used Second Hand Smoke Exposure: No service: No Current occupational status: employed Gender identity: Female Cognitive needs: No Hearing needs: No Vision needs: No Female Reproductive History Menstrual Age of Menarche: 17 Questionnaire PHQ-9 Over the last 2 weeks, how often have you been bothered by any of the following problems? 1. Little interest or pleasure in doing things: several days 3. Trouble falling or staying asleep, or sleeping too much: more than half the days 4. Feeling tired or having little energy: several days 5. Poor appetite or overeating: several days 6. Feeling bad about yourself - or that you are a failure or have let yourself or your family down: not at all 7. Trouble concentrating on things, such as reading the newspaper or watching television: nearly every day 8. Moving or speaking so slowly that other people could have noticed. Or the opposite - being so fidgety or restless that you have been moving around a lot more than usual: not at all 9. Thoughts that you would be better off or of hurting yourself in some way: not at all Source: Developed by Drs. Tarun Rowan, Ernestine Fine, Domingo Bass and colleagues, with an educational chaz from [employer]. Thrive Questionnaire Date Thrive assessed: 07/04/24 I am a: Patient What is your living situation today?: I have a steady place to live Within the past 12 months, did the food you bought not last and you didn't have the money to get more?: Never true Within the past 12 months, did you worry whether your food would run out before you got money to buy more?: Never true Do you have trouble paying for medicines?: No Do you have trouble getting transportation to medical appointments?: No Do you have trouble paying your heating and electricity bill?: No Do you have trouble taking care of your child, family member or friend?: No Do you have trouble with day-to-day activities such as bathing, preparing meals, shopping, managing finances, etc.?: No Are you currently unemployed and looking for a job?: No Are you interested in more education?: No Please select the resources that you would like help with: None Currently or been in a relationship where the following occur: No concerns reported THRIVE Score: 0 AUDIT C Alcohol Use Questionnaire (AUDIT-C) 1. How often do you have a drink containing alcohol?: Never Total Score: 0 EMELY-7 AMB Questionnaire EMELY-7 Date EMELY - 7 assessed: 07/04/24 Feeling nervous, anxious, or on edge: 3 = Nearly every day Not being able to stop or control worryin = More than half the days Worrying too much about different things: 3 = Nearly every day Trouble relaxin = Nearly every day Being so restless that it is hard to sit still: 2 = More than half the days Becoming easily annoyed or irritable: 1 = Several days Feeling afraid as if something awful might happen: 0 = Not at all Total EMELY-7 score (0-4 normal; 5-9 mild; 10-14 moderate; 15-21 severe): 14 Source: Developed by Drs. Tarun Rowan, Ernestine Fine, Domingo Bass and colleagues, with an educational chaz from [employer]. Review of Systems Const Denies chills, Denies fatigue, Denies headache(s) and Denies weight loss Eyes Denies change in vision, Denies diplopia and Denies eye pain ENT Denies vertigo, Denies dizziness, Denies headache(s) and Denies nasal discharge Card Denies chest pain, Denies rapid heart rate and Denies dyspnea on exertion Resp Denies chest congestion, Denies cough, Denies pain with cough and Denies dyspnea on exertion GI Denies abdominal pain, Denies hematochezia and Denies change in bowel habits Musc Denies myalgias, Denies arthralgias and Denies joint swelling Skin/Breast Denies lesions and Denies unusual bruising Neuro Denies vertigo, Denies dizziness, Denies headache(s) and Denies focal weakness Endo Denies fatigue Physical exam (Primary Care) Vital Signs: Last Vital Signs Pulse 71 08/24/24 12:49 BP 126/72 08/24/24 12:49 Pulse Ox 96 08/24/24 12:49 Oxygen Delivery Method Room Air 08/24/24 12:49 BMI result Body Mass Index 27.9 Tobacco/Smoking Status: Tobacco use Status Tobacco use date assessed 07/04/24 08/24/24 12:55 Patient Tobacco Use Status Never used Tobacco 08/24/24 12:55 Tobacco use type Cigarette 08/24/24 12:55 e-Cigarette/Vaping Use Never Used 08/24/24 12:55 Thrive Assessment: Date of Thrive Assessment Date Thrive assessed 07/04/24 08/24/24 12:55 Currently or been in a relationship where the following occur: No concerns reported Const General: cooperative, healthy appearing and no acute distress Orientation/consciousness: oriented to person, oriented to place and oriented to time [facility] Head: Yes normal to inspection, Yes normocephalic and Yes atraumatic Mouth: Normal oral and palatal mucosa present and tongue normal Throat: Yes posterior oropharynx normal and Yes uvula midline Eyes General: appearance normal, both eyes and all related structures Neck Neck: Yes normal visual inspection, Yes full ROM and Yes no lymphadenopathy Thyroid: Thyroid normal Carotids: normal carotid upstroke Chest Chest palpation & inspection: normal inspection of the chest Resp Effort & Inspection: normal respiratory effort and able to speak in complete sentences Auscultation: clear to auscultation bilaterally Cardio Jugular venous distension: no JVD Palpation: normal PMI Rate: regular rate Rhythm: regular rhythm Heart sounds: S1 normal heart sound present and S2 normal heart sound present GI Inspection: Yes normal to inspection Palpation (GI): Soft to palpation and No hepatosplenomegaly present Auscultation: normal bowel sounds General: Yes no CVA tenderness Back/Spine/Pelvis Back: no CVA tenderness Skin General skin exam: no rashes or lesions noted Neuro General: oriented to person, oriented to place and oriented to time Extrem General: Yes normal to inspection and Yes full ROM Assessment and Plan Assessment & Plan (1) Physical exam: Code(s): Z00.00 - Encounter for general adult medical examination without abnormal findings Plan: do labs (2) Asthma: Code(s): J45.909 - Unspecified asthma, uncomplicated Plan: stable; same rx Orders: Orders Lipid Panel Today Z13.220 - Encounter for screening for lipoid disorders Thyroid Stimulating Hormone Today Z13.29 - Encounter for screening for other suspected endocrine disorder Complete Blood Count Auto Diff Today Z13.0 - Encounter for screening for diseases of the blood and blood-forming organs and certain disorders involving the immune mechanism Comprehensive [place]. Panel Fast Today Z13.9 - Encounter for screening, unspecified Referrals Psychiatry Referral F90.9 - Attention-deficit hyperactivity disorder, unspecified type Coding Level of Care Code Est Pt Prev Care 18-39y(08167) Diagnoses Physical exam Z00.00 Asthma J45.909
== END 2024-08-24 13:05 | disposition home or self-care (01) ==
PROVIDERS: PCP Internal Medicine; Visit Provider Internal Medicine
DX: Z00.00 Encounter for general adult medical examination without abnormal findings (principal); J45.909 Unspecified asthma, uncomplicated

== ENCOUNTER → 2024-08-24 12:46 | Outpatient (BNVA) | payer OTHER, SELFPAY | PROVIDERS: PCP Internal Medicine; Visit Provider Internal Medicine | DX: Z00.00 Encounter for general adult medical examination without abnormal findings (principal); J45.909 Unspecified asthma, uncomplicated | CPT/HCPCS: 99395 ==

== ENCOUNTER 2024-09-09 09:52 | Outpatient (REF) | payer OTHER, SELFPAY ==
[2024-09-09 10:11] LABS: MANUAL DIFF FLAG NO
[2024-09-09 10:17] LABS: Basophils Percent Auto 0.5 % (0-2); Eosinophils Percent Auto 0.5 % (0-4); Hematocrit 41.4 % (37.0-47.0); Hemoglobin 14.1 g/dl (12.0-16.0); Imm Gran Abs Auto 0.03 X10*3/uL (0.00-0.03); Imm Gran Pct Auto 0.4 % (0.0-0.4); Lymphocytes Absolute Auto 2.1 X10*3/uL (1.2-4.9); Lymphocytes Percent Auto 27.6 % (20-40); Mean Corpuscular HGB Conc 34.1 g/dl (31.0-35.0); Mean Corpuscular Hemoglobin 29.9 pg (27.0-33.0); Mean Corpuscular Volume 87.9 fL (80.0-98.0); Mean Platelet Volume 8.9 fL (9.4-12.3); Monocytes Absolute Auto 0.5 X10*3/uL (0.1-1.2); Neutrophils Absolute Auto 4.9 x10*3/uL (2.0-8.3); Platelet Count 283 X10*3/uL (160-400); Red Blood Count 4.71 X10*6/uL (4.20-5.50); Red Cell Distribution Width 12.5 % (11.0-16.0); White Blood Count 7.5 X10*3/uL (4.8-10.8)
[2024-09-09 10:50] LABS: Alanine Aminotransferase 12 U/L (0-31); Albumin Level 4.5 g/dL (3.5-5.0); Alkaline Phosphatase 68 U/L (39-117); Anion Gap 11 (12-20); Aspartate Amino Transferase 15 U/L (5-31); Bilirubin Total 0.5 mg/dL (0.0-1.0); Blood Urea Nitrogen 11 mg/dL (9-16); Calcium 10.1 mg/dL (8.4-10.2); Carbon Dioxide 25 mmol/L (22-29); Chloride 106 mmol/L (96-108); Cholesterol 172 mg/dL (<200); Estimated Glomerular Filt Rate > 60; Glucose Fasting 83 mg/dL (60-99); HDL Cholesterol 45 mg/dL (>40); LDL Cholesterol Calculated 102 mg/dL (<100); Potassium 4.1 mmol/L (3.3-5.1); Sodium 138 mmol/L (135-145); Total Protein 7.3 g/dL (6.5-8.0); Triglycerides 126 mg/dL (<150)
[2024-09-09 11:08] LABS: Thyroid Stimulating Hormone 1.33 uIU/mL (0.32-4.0)
== END 2024-09-09 09:53 | disposition home or self-care (01) ==
LOC: HO.LAB 09:52
PROVIDERS: PCP Internal Medicine; Visit Provider Internal Medicine
DX: Z13.220 Encounter for screening for lipoid disorders (principal); Z13.0 Encounter for screening for diseases of the blood and blood-forming organs and certain disorders involving the immune mechanism; Z13.9 Encounter for screening, unspecified
CPT/HCPCS: 36415; 80053; 80061; 84443; 85025

== ENCOUNTER 2024-11-01 08:27 | Outpatient (AMB) | payer OTHER, SELFPAY ==
--- NOTE | 2024-11-01 08:40 | MHC.OFFWIV ---
Intake Vital Signs 11/01/24 08:41 Weight 177 lb BP 130/84 Blood Pressure Location Rt brachial Position Sitting Pulse 82 Pulse Source Pulse Oximeter Temp 98.2 F Temp Source Oral Pulse Oximetry (%) 97 Oxygen Delivery Method Room Air Intake Visit Reasons: EP-?rt side pink eye Intake Note: Patient here for right eye dryness, irrated and pain that started yesterday. This morning she woke up with slight discharge from eye. Patient Tobacco Use Status: Never used Tobacco Allergies No Known Allergies [No Known Allergies*] Allergy (Verified 11/01/24 08:42) Medication List - Last Reconciled 11/01/24 by Ishmael Black MD albuterol sulfate 90 mcg/actuation 2 puffs inhalation Q4-6H PRN 30 days atomoxetine 40 mg PO QAM citalopram 20 mg PO DAILY L norgest/e.estradiol-e.estrad 0.15 mg-30 mcg (84)/10 mcg (7) 1 tab PO DAILY 3 months Do you need a note to return to daycare/school/sports/work: Yes HPI EP-?rt side pink eye HPI Details Chief Complaint The patient presents with irritation right eye accompanied by crusting and blurry vision. Assessment and Plan 34-year-old female with a history of contact lens use, presenting with right eye irritation and pain, accompanied by crusting and blurry vision. The patient's symptoms began with mild irritation that progressed to crusting, and blurry vision . There were no reports of pus or significant redness initially. The patient has continued to experience significant discomfort, indicating possible conjunctivitis, likely bacterial given the crusting. Differential diagnoses include viral conjunctivitis; however, the crusting and severity of symptoms suggest a bacterial etiology. The patient has no known drug allergies, specifically no allergies to antibiotics. 1. Blurry Vision Due To Contact Lens Use The blurry vision appears related to irritation and improper use of contact lenses. The patient was instructed to avoid wearing contact lenses during the course of the eye infection and advised to use corrective eyeglasses. Reassessment of vision will be necessary post-recovery to ensure no long-term impact on visual acuity. 2. Conjunctivitis The patient is likely experiencing bacterial conjunctivitis given the crusting and severity of symptoms. I will prescribe antibiotic eye drops to mitigate the infection. The patient is advised to discontinue contact lens use until symptoms resolve and to wear glasses instead to avoid further irritation. Follow-up is recommended if symptoms persist or worsen despite treatment. Problem List - Conjunctivitis - Blurry vision due to contact lens use Patient Instructions - Use the prescribed antibiotic eye drops as directed. - Discontinue contact lens use until symptoms completely resolve. - Wear corrective eyeglasses to relieve eye strain. - Avoid rubbing or touching the eyes. - Contact the office if symptoms persist, worsen, or new symptoms develop. 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 Father No problems noted. Maternal Aunt Breast cancer Social History Housing: Apartment Alcohol intake: never Patient Tobacco Use Status: Never used Tobacco Tobacco use type: Cigarette e-Cigarette/Vaping Use: Never Used Second Hand Smoke Exposure: No service: No Current occupational status: employed Gender identity: Female Cognitive needs: No Hearing needs: No Vision needs: No Female Reproductive History Menstrual Age of Menarche: 17 Review of Systems Const All systems reviewed & are unremarkable except as noted in HPI and below Physical Exam Vital Signs: Last Vital Signs Temp 98.2 F 11/01/24 08:41 Pulse 82 11/01/24 08:41 BP 130/84 11/01/24 08:41 Pulse Ox 97 11/01/24 08:41 Oxygen Delivery Method Room Air 11/01/24 08:41 Const General: no acute distress Orientation/consciousness: patient oriented x3 Eyes Eyes/upper lids images: 1. Conjunctival injection mild discharge medial corner, cornea clear no photophobia was noticed with exam, no pain with palpation Resp Effort & Inspection: normal respiratory effort and able to speak in complete sentences Neuro General: patient oriented x3 Psych Mental Status: mental status grossly normal Assessment & Plan Assessment & Plan (1) Acute conjunctivitis, right eye: Code(s): H10.31 - Unspecified acute conjunctivitis, right eye Qualifiers: Acute conjunctivitis type: unspecified Qualified Code(s): H10.31 - Unspecified acute conjunctivitis, right eye Plan Chief Complaint The patient presents with irritation right eye accompanied by crusting and blurry vision. Assessment and Plan 34-year-old female with a history of contact lens use, presenting with right eye irritation and pain, accompanied by crusting and blurry vision. The patient's symptoms began with mild irritation that progressed to crusting, and blurry vision . There were no reports of pus or significant redness initially. The patient has continued to experience significant discomfort, indicating possible conjunctivitis, likely bacterial given the crusting. Differential diagnoses include viral conjunctivitis; however, the crusting and severity of symptoms suggest a bacterial etiology. The patient has no known drug allergies, specifically no allergies to antibiotics. 1. Blurry Vision Due To Contact Lens Use The blurry vision appears related to irritation and improper use of contact lenses. The patient was instructed to avoid wearing contact lenses during the course of the eye infection and advised to use corrective eyeglasses. Reassessment of vision will be necessary post-recovery to ensure no long-term impact on visual acuity. 2. Conjunctivitis The patient is likely experiencing bacterial conjunctivitis given the crusting and severity of symptoms. I will prescribe antibiotic eye drops to mitigate the infection. The patient is advised to discontinue contact lens use until symptoms resolve and to wear glasses instead to avoid further irritation. Follow-up is recommended if symptoms persist or worsen despite treatment. Problem List - Conjunctivitis - Blurry vision due to contact lens use Patient Instructions - Use the prescribed antibiotic eye drops as directed. - Discontinue contact lens use until symptoms completely resolve. - Wear corrective eyeglasses to relieve eye strain. - Avoid rubbing or touching the eyes. - Contact the office if symptoms persist, worsen, or new symptoms develop. 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
[2024-11-01 08:41] VITALS: BP 130/84; PULSE 82; TEMP 36.8; O2SAT 97
== END 2024-11-01 09:41 | disposition home or self-care (01) ==
PROVIDERS: PCP Internal Medicine; Visit Provider Internal Medicine
DX: H10.31 Unspecified acute conjunctivitis, right eye (principal)

== ENCOUNTER → 2024-11-01 08:27 | Outpatient (BNVA) | payer OTHER, SELFPAY | PROVIDERS: PCP Internal Medicine; Visit Provider Internal Medicine | DX: H10.31 Unspecified acute conjunctivitis, right eye (principal) | CPT/HCPCS: 99212 ==

== ENCOUNTER 2025-03-22 09:03 | Outpatient (AMB) | payer OTHER, SELFPAY ==
--- NOTE | 2025-03-22 09:04 | A.OFFVIS_ITS ---
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 Engineering Aide Required: No Engineering Aide Services: Engineering Aide Present Information Interpreted: clinical only Power Transformer Assembler: Power Transformer Assembler Present Allergies No Known Allergies [No Known Allergies*] Allergy (Verified 03/22/25 09:11) Medication List - Last Reconciled 03/22/25 by Irena Rivera CNM albuterol sulfate 90 mcg/actuation 2 puffs inhalation Q4-6H PRN 30 days atomoxetine 40 mg PO QAM citalopram 20 mg PO DAILY L norgest/e.estradiol-e.estrad 0.15 mg-30 mcg (84)/10 mcg (7) 1 tab PO DAILY 3 months polymyxin B sulf-trimethoprim 10,000 unit- 1 mg/mL 1 drp ophthalmic (eye) QID 5 days Is last menstrual period known: No HPI HPI COMMUTATOR TESTER annual exam: Details: Is here with a daughter for annual exam. 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 She is not due for Pap today. Her primary care provider has retired, so she is on the list to be assigned to a new 1. She has no health concerns at all she is trying to eat healthier and she and her boyfriend workout together. She goes on [employer] mental [facility] girl trips with her sister her best friend her [id number] every 3-4 months for just a weekend and it is been a great little break. She has no concerns at all about STIs. Her periods come every 3 months her last 1 lasted a little bit longer and was unusual. We discussed how sometimes it is possible to have an irregular menses or breakthrough bleed on these sequential pills. Nevertheless she would like to stay on this regime as it works well for her. [facility] Medical History Asthma Nausea Physical exam Surgical History No pertinent past surgical history Family History Mother No problems noted. Father No problems noted. Maternal Aunt Breast cancer Social History Housing: Apartment Alcohol intake: never Patient Tobacco Use Status: Never used Tobacco Tobacco use type: Cigarette e-Cigarette/Vaping Use: Never Used Second Hand Smoke Exposure: No service: No Current occupational status: employed Gender identity: Female Cognitive needs: No Hearing needs: No Vision needs: No Female Reproductive History Menstrual Age of Menarche: 17 Duration of menses: 3-5 days control method: pills Total pregnancies: 1 Full term: 1 Date of last pap smear: 03/15/24 (negative,2021,WNL) Physical Exam Vital Signs: Last Vital Signs BP 118/70 03/22/25 09:10 BMI result Body Mass Index 28.1 Const General: healthy appearing, comfortable, no acute distress, well developed and alert Nutritional Appearance: average body habitus Orientation/consciousness: patient oriented x3 Limitations: no limitations HEENT Head: Yes normocephalic Neck Neck: Yes normal visual inspection Chest Chest palpation & inspection: normal inspection of the chest Breast/axilla inspection: normal inspection of the breasts and normal inspection of the axillae Breast/axilla palpation: normal palpation of the breasts and normal palpation of the axillae Resp Effort & Inspection: normal respiratory effort GI Inspection: Yes normal to inspection, No Abdominal wall edema and No distended Palpation (GI): Soft to palpation and nontender Other: Normal external exam patient has extremely good muscle tone and was tense with the exam vagina pink and moist with normal-appearing whitish discharge consistent with OCP use . Cervix extremely posterior and deep in pelvis but long close thick mobile nont jake uterus small midposition to anteverted mobile nontender adnexa nontender patient has extremely good muscle tone. General: Yes bladder normal to palpation External Female Exam: normal external appearance and normal appearance of the urethra Speculum Exam - Vagina: normal appearance of the vagina, normal palpation and normal vaginal discharge Speculum Exam - Cervix: normal appearance of the cervix, normal palpation and nontender Bimanual exam- vagina & uterus: normal bimanual exam, normal palpation, uterine size normal, bladder normal to palpation, consistency normal, normal palpation, uterine mobility normal, uterine shape normal, No Cervical tenderness present, non-tender and no cervical motion tenderness Bimanual Exam- Adnexa, other: normal adnexae, no masses, normal and No adnexal tenderness Neuro General: patient oriented x3 Results Reviewed Results Reviewed: Name: Britney Diallo Age/Sex: 34/F Attending: Irena Rivera CNM : 1990 Submitted by: Irena Rivera CNM Copies to: MR #: [id number] Status: DEP REF Collected: 03/15/24 Location: .LAB Received: 03/17/24 Interpretation Satisfactory for evaluation. Negative for intraepithelial lesion or malignancy. HPV mRNA E6/E7: NOT DETECTED This assay detects E6/E7 viral messenger RNA (mRNA) from 14 high-risk HPV types (16, 18, 31, 33, 35, 39, 45, 51, 52, 56, 58, 59, 66, 68) HPV testing performed by [facility], [place], [place]. See reference laboratory portion of the EMR for entire report. Clinical Information LMP: Unknown date, BCP Previous PAP test: 2021, WNL Material Received ThinPrep-Cervical Electronically Signed By: DAVID Clarke (ASCP) 04/04/24 0717 The Pap Test is a screening procedure with the inherent possibility of both false negative and false positive results. Results should be interpreted in the context of historic and current clinical findings. Reliability of the Pap Test is enhanced by performing the test on a regular repetitive basis. Patient: Britney Diallo Age/Se Assessment & Plan Assessment & Plan (1) Contraceptive management: Comment: very happy on Seasonique/reviewed potential for unexpected breakthrough bleeding and other side effects. Code(s): Z30.9 - Encounter for contraceptive management, unspecified Category: Medical (2) Well woman exam with routine gynecological exam: Code(s): Z01.419 - Encounter for gynecological examination (general) (routine) without abnormal findings Category: Medical (3) Cervical cancer screening: Comment: pap neg 2019./Pap smear done 03/15/2024=neg w neg HPV. Code(s): Z12.4 - Encounter for screening for malignant neoplasm of cervix Category: Medical (4) Obstetric vaginal laceration: Comment: Also cervical. Patient says the perineal laceration took more than a year to really heal, ameliorated by cessation of starting with combination OCPs with estrogen./reviewed the reality of PTSD from this experience.;03/22/25- notes she is always tense with exams (with good reason). Code(s): O71.4 - Obstetric high vaginal laceration alone Category: Medical Plan -----Discussed in this visit the following: healthy balanced diet, regular and consistent exercise, getting recommended health screens, doing the best she can for her particular health concerns, kegel exercises, pap smear screening and followup recommendations, mammography screening and SBE, normal changes in cycles in her life stage--- . Reviewed her excellent self-care in every way physically mentally nutritionally socially and with her family life. She is happy on the pills discussed that it is very expected uncommon to have a periodic menses/withdrawal bleed that is unpredictable especially if somebody is been on these pills for a long time nevertheless she prefers to stay on them as they worked in general very well for her. We will see her in 1 year and I did send a refill for more than a year. She has no need for any lab work. Medications: Refilled L norgest/e.estradiol-e.estrad 0.15 mg-30 mcg (84)/10 mcg (7) 1 tab PO DAILY 3 months 90 ea 4RF Coding Level of Care Code Est Pt Prev Care 18-39y(73101) Diagnoses Contraceptive management Z30.9 Well woman exam with routine gynecological exam Z01.419 Cervical cancer screening Z12.4 Obstetric vaginal laceration O71.4
[2025-03-22 09:10] VITALS: BP 118/70; BMI 28.1
--- OUTSIDE RECORDS SUMMARY | 2025-03-22 09:45 | XMS_ITS | Clinical Summary ---
Author Organization [facility] Address [address] [place] [address] Phone Care Team Providers Care Tool Programmer Name Role Phone Unavailable Primary Care Provider Unavailabl e Immunizations Immunization Administration Dates Next Due DTP 06/24/1995, 3,1991,07/29,1991 H1N1 11/20/2009 HPV, Quadrivalent 04/19/2008,10/27/2007,08/25/20 07 Hep B, ped/adol 02/04/1999,08/03/1996,06/23/1996 Hib (PRP-T) 11/14/1992, 1,1991,04/28 IPV 06/24/1995, 2,1991,04/28 Influenza Split 12/02/2010 Influenza, injectable, trivalent 11/20/2009,10/30,10/03/2007 MMR 01/04/1996,11/14/1992 Meningococcal Conj (Menactra) MCV4P 04/29/2006 Td (adult) (MBL), 2 Lf tetan us toxoid, PF, adsorbed 08/06/2003 Tdap 04/19/2008 Family History Relation Name Status Comments Brother Alive Brother: Asthma , ADD/ADHD, Alive and well Mother Alive Mother: Alive a nd well Other Uncle: Diabetes mellitus Sister Alive Sister: Alive a nd well Social History Tobacco Use Types Packs/Day Years Used Date Smoking Tobacco: Never Assessed Comments Unknown Sex and Gender Information Value Date Recorded Sex Assigned at Not on file Legal Sex Female 4:42 PM EDT Gender Identity Not on file Sexual Orientation Not on file Last Filed Vital Signs Vital Sign Reading Time Taken Comments Blood Pressure 102/72 10/19/2012 12:00 AM EST Pulse 68 12/02/2010 12:00 AM EST Temperature 36.3 ??C (97.4 ??F) 12/02/2010 12:[address] Respiratory Rate - - Oxygen Saturation - - Inhaled Oxygen Concentration - - Weight 56.2 kg (124 lb) 10/19/2012 12:00 AM EST Height 163.8 cm (5' 4.5 ) 12/02/2010 12:00 AM ES T Body Mass Index 20.96 12/02/2010 12:00 AM EST Plan of Treatment Health Maintenance Due Date Last Done Comments Varicella Vaccines (1 of 2 - 13+ 2-dose series) 02/03/2004 DTaP,Tdap,and Td Vaccines (7 - Td or Tdap) 04/19/2018 04/19/2008, 08/06/2003, 06/24/1995, Additional history exists Influenza Vaccines (#1) 2024 12/02/19, 11/20/2009, 11/20/2008, Additional history exists COVID-19 Vaccine ( season) 2024 HIB Vaccines Completed 11/14/1992, 10/01, 1991, Additional history exists IPV Vaccines Completed 06/24/1995, 10/29, 1991, Additional history exists MMR Vaccines Completed 01/04/1996, 11/14/1992 Hepatitis B Vaccines Completed 02/04/1999, 08/03/1996, 06/23/1996 Meningococcal Vaccine Aged Out 04/29/2006 No oracio milagros eligible based on patient's age to complete this topic HPV Vaccines Completed 04/19/2008, 09/30, 08/25/2007 Hepatitis A Vaccines Aged Out No long er eligible based on patient's age to complete this topic Men B Vaccine Aged Out No longer elig ible based on patient's age to complete this topic Pneumococcal Vaccine Aged Out No long er eligible based on patient's age to complete this topic Procedures * Due to [place] [email or web address] law, this organization might not be sharing sensitive test results. Procedure Name Priority Date/Time Associated Diagnosis Comments CHLAMYDIA AND GONORRHEA, AMPLIFIED Routine 12/03/2010 1:09 PM EST from Last 3 Months or Most Recently Relevant to Health Maintenance Results * Due to [place] [email or web address] law, this organization might not be sharing sensitive test results. * Chlamydia and Gonorrhoea, Amplified (12/03/2010 1:09 PM EST) URINE GC AMP PROBE NEGATIVE [facility] Comment: NO NEISSERIA GONORRHOEAE RNA DETECTED IN THIS PATIENT'S SAMPLE. ? (REFERENCE RANGE/NORMAL VALUE: NOT DETECTED) ? NOTE: THIS TEST USES ADMISSIONS EVALUATOR MEDIATED AMPLIFICATION METHOD TO DETECT rRNA FROM C.TRACHOMATIS AND N.GONORRHOEAE. A NEGATIVE RESULT DOES NOT PRECLUDE INFECTION WITH C.TRACHOMATIS OR N.GONORRHOEAE BECAUSE RESULTS ARE DEPENDENT ON ADEQUATE SPECIMEN COLLECTION, ABSENCE OF INHIBITORS, AND SUFFICIENT rRNA TO BE DETECTED. THE APTIMA COMBO2 ASSAY IS NOT INTENDED FOR THE EVALUATION OF SUSPECTED SEXUAL ABUSE OR FOR OTHER MEDICO LEGAL INDICATIONS. IS TRUE FOR ALL NON CULTURE METHODS, A POSITIVE SPECIMEN OBTAINED FROM A PATIENT AFTER THERAPEUTIC TREATMENT CANNOT BE INTERPRETED INDICATING THE PRESENCE OF VIABLE C.TRACHOMATIS OR N.GONORRHOEAE. THERAPEUTIC FAILURE OR SUCCESS CANNOT BE DETERMINED WITH THE APTIMA COMBO2 ASSAY SINCE NUCLEIC ACID MAY PERSIST FOLLOWING APPROPRIATE ANTIMICROBIAL THERAPY. A NEGATIVE URINE RESULT FOR A PATIENT WHO IS CLINICALLY SUSPECTED OF HAVING A CHLAMYDIAL OR GONOCOCCAL INFECTION DOES NOT RULE OUT THE PRESENCE OF C.TRACHOMATIS OR N.GONORRHOEAE IN THE UROGENITAL TRACT. TESTING OF AN ENDOCERVICAL(FEMALE) OR URETHRAL(MALE) SPECIMEN IS RECOMMENDED IF THERE IS HIGH CLINICAL SUSPICION OF INFECTION. PRESERVCYT LIQUID PAP AND URINE SAMPLING ARE NOT DESIGNED TO REPLACE CERVICAL EXAMS AND ENDOCERVICAL SAMPLES FOR DIAGNOSIS OF FEMALE UROGENITAL INFECTIONS. PATIENTS MAY HAVE CERVICITIS, URETHRITIS, URINARY TRACT INFECTIONS, OR VAGINAL INFECTIONS DUE TO OTHER CAUSES OR CONCURRENT INFECTIONS WITH OTHER AGENTS. URINE CHLAMYDIA AMP PROBE NEGATIVE [facility] Comment: NO CHLAMYDIA TRACHOMATIS RNA DETECTED IN THIS PATIENT'S SAMPLE. ? (REFERENCE RANGE/NORMAL VALUE: NOT DETECTED) ? 12/03/2010 1:09 PM EST Narrative [facility] - 12/03/2010 1:09 PM EST URINE CHLAMYDIA GC AMP PROBE us Claudia Atkins NP LAB MICROBIOLOGY - GENERAL OR DERABLES Final Result [facility] [address] [place] [address], [place] from Last 3 Months or Most Recently Relevant to Health Maintenance
--- OUTSIDE RECORDS SUMMARY | 2025-03-22 09:45 | XMS_ITS | Encounter Summary ---
Author Organization [facility] Address [address] [place] [id number] Phone Care Team Providers Care Silver Designer Name Role Phone Claudia Atkins NP Primary Care Provider Elana bennett Encounter Details Date Type Department Care Team (Late st Contact Info) Description 07/15/2017 Conversion Encounter [facility] - [address] [id number] Social History Tobacco Use Types Packs/Day Years Used Date Smoking Tobacco: Never Assessed Comments Unknown Sex and Gender Information Value Date Recorded Sex Assigned at Not on file Legal Sex Female 4:42 PM EDT Gender Identity Not on file Sexual Orientation Not on file documented as of this encounter Plan of Treatment Not on file documented as of this encounter Visit Diagnoses Not on filedocumented in this encounter Care Teams Silver Designer Relationship Specialty Start Date End Date Claudia Atkins NP PCP - General 07/09/17 03/10/23 documented as of this encounter
== END 2025-03-22 10:25 | disposition home or self-care (01) ==
LOC: HO.HWSM 09:03
PROVIDERS: PCP Internal Medicine; Visit Provider Advanced Practice Midwife
DX: Z01.419 Encounter for gynecological examination (general) (routine) without abnormal findings (principal)
CPT/HCPCS: 99395; 99459

== ENCOUNTER → 2025-03-22 09:03 | Outpatient (BNVA) | payer OTHER, SELFPAY | PROVIDERS: PCP Internal Medicine; Visit Provider Advanced Practice Midwife | DX: Z01.419 Encounter for gynecological examination (general) (routine) without abnormal findings (principal); Z30.9 Encounter for contraceptive management, unspecified; Z12.4 Encounter for screening for malignant neoplasm of cervix; O71.4 Obstetric high vaginal laceration alone | CPT/HCPCS: 99395; 99459 ==

== ENCOUNTER 2025-05-06 11:47 | Emergency (ER) | payer OTHER, SELFPAY ==
--- NOTE | ~2025-05-06 | XR_ITS ---
CLINICAL HISTORY: cp 2 view chest x-ray. Comparison: None Findings: Normal lung volumes. Lungs are clear. No pneumothorax or pleural effusion. Heart size normal. No passive venous congestion. No midline shift or tracheal deviation. No acute fracture. Impression: 1. No acute cardiopulmonary disease. This document has been electronically signed by: Matthew Galvan MD on 05/06/2025 12:59:53
--- NOTE | 2025-05-06 11:56 | ECG_ITS ---
Test Reason : cp Blood Pressure : */* mmHG Vent. Rate : 81 BPM Atrial Rate : 81 BPM P-R Int : 134 ms QRS Dur : 90 ms QT Int : 374 ms P-R-T Axes : 67 2 32 degrees QTcB Int : 434 ms Normal sinus rhythm Possible Anterior infarct , age undetermined Abnormal ECG No previous ECGs available Referred By: Generic ED Physician Electronically Signed By: DARREN BUCKNER MD
[2025-05-06 12:04] VITALS: BP 140/80; PULSE 86; RESP 19; TEMP 36.6; O2SAT 98; BMI 29.1
--- NOTE | 2025-05-06 12:05 | ED.CHESTPAIN ---
HPI - Chest Pain General Chief Complaint: General Medical Stated Complaint: chest pain Time Seen by Provider: 05/06/25 15:09 Source: patient Mode of arrival: ambulatory Limitations: no limitations History of Present Illness ED Provider: basil kerr np HPI narrative: Patient is a 35-year-old female with past medical history of asthma and anxiety who presents emergency department for evaluation. 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 However, Wednesday 3 days ago she began experiencing diffuse anterior chest pain. She does admit that the pain has been fact improved but it still is intermittently present though more mild. Yesterday she felt extremely fatigued which is atypical for her thus prompting her concern to come to emergency department for evaluation. She denies any diaphoresis, no nausea or vomiting, no worsening on exertion, no shortness of breath. Denies any recent fevers or chills, URI symptoms. Denies any numbness or tingling to the extremities. Denies any recent lower extremity redness pain swelling or history of VTE/malignancy. Related Data Home Medications ?Medication ?Instructions ?Recorded ?Confirmed atomoxetine 40 mg capsule 40 mg PO QAM 11/01/24 03/22/25 Previous Rx's ?Medication ?Instructions ?Recorded albuterol sulfate 90 mcg/actuation 2 puff inhalation Q4-6H PRN 11/24/23 aerosol inhaler shortness of breath or wheezing 30 days #8.5 grams citalopram 20 mg tablet 20 mg PO DAILY #30 tabs 04/18/24 polymyxin B sulfate 10,000 1 drp ophthalmic (eye) QID 5 days 11/01/24 unit-trimethoprim 1 mg/mL eye drops #10 mL L norgest/E estradiol-E estrad 1 tab PO DAILY 3 months #90 ea 03/22/25 0.15 mg-30 mcg (84)/10 mcg(7) tabs,3mos Allergies Allergy/AdvReac Type Severity Reaction Status Date / Time No Known Allergies Allergy Verified 05/06/25 12:06 [No Known Allergies*] Review of Systems Review of Systems: Yes all other systems are reviewed and are negative PMFSH Past Medical History Attestation statement: The following information was validated with the patient. Source: old records reviewed Medical History Asthma Nausea Physical exam Surgical History No pertinent past surgical history Family History Family History Mother No problems noted. Father No problems noted. Maternal Aunt Breast cancer Social History Social History Housing: Apartment Alcohol intake: never Patient Tobacco Use Status: Never used Tobacco Tobacco use type: Cigarette e-Cigarette/Vaping Use: Never Used Second Hand Smoke Exposure: No Advance Directives: No Advance Directives Information Provided: Yes Do you have a plan to hurt others: No Plan service: No Current occupational status: employed Gender identity: Female Cognitive needs: No Hearing needs: No Vision needs: No Physical Exam Vital Signs: Vital Signs: Last Vital Signs Temp 98.7 F 05/06/25 19:17 Pulse 72 05/06/25 19:17 Resp 18 05/06/25 19:17 BP 131/83 05/06/25 19:17 Pulse Ox 95 05/06/25 19:17 O2 Del Method Room Air 05/06/25 19:17 BMI result Body Mass Index 29.1 Appearance: Alert.?Oriented to person, place and time. No acute distress.?Normal affect. Eyes: Pupils equal, round and reactive to light.? ENT: Pharynx normal.?? Neck: Normal inspection.? Neck supple.??No JVD. CVS: Heart sounds normal. Normal heart rate and rhythm.? Pulses normal.?? Respiratory: No respiratory distress.? Lung sounds clear to auscultation bilaterally?? Abdomen: Soft and non-tender. Normoactive bowel sounds. No pulsatile mass.?? Skin: Skin warm and dry.? Normal skin color.? ?? Extremities: No lower extremity edema.? No calf ttp? Neuro: Moves all extremities spontaneously. Sensation intact bilaterally. CN II-XII intact. No focal neuro deficits. Ambulates with normal steady gait. Course Course Course Narrative: This is a Rapid Medical Exam performed in triage by Nano Espinoza PA-C. Full HPI, ROS and PE to be performed by primary ED provider. 35 yo F w/pmhx anxiety, asthma, presenting to the ED c/o chest pain x Wednesday & bilateral arm pain x few weeks. Also reports extreme fatigue PE: No resp distress, talking in complete sentences Plan: EKG, labs, CXR Medical Decision Making Medical Decision Making MDM Narrative: Patient is a 35 year old female with past medical history of anxiety, asthma who presents to the emergency department for evaluation with complaint of chest pain. No evidence of volume overload or shock on exam. Lower suspicion for acute PE, Wells low risk, however she is on OCP, will obtain D-dimer. Low suspicion for pneumothorax, thoracic aortic dissection, cardiac effusion / tamponade. No recent trauma or injury, no tracheal deviation, unlikely tension pneumothorax. No recent URI symptoms to suggest viral illness, pneumonia, costochondritis. No abdominal tenderness upon palpation, negative Leon sign, unlikely acute cholecystitis, choledocholithiasis, no fever or jaundice to suggest acute cholangitis, may possibly be biliary colic secondary to cholelithiasis. Denies associated acid reflux, no tenderness upon palpation over the epigastrium or left upper quadrant to suggest gastritis, no recent hematemesis history less likely to suggest PUD. Denies excessive alcohol consumption, history of diabetes, lower suspicion acute pancreatitis. CBC is without leukocytosis anemia or thrombocytopenia. No significant electrolyte derangement. No FLAKITA. LFTs unremarkable. High sensitive troponin below detectable limits, EKG revealing normal sinus rhythm with ventricular rate of 81, normal MELANI, QTC 434, no ST elevation. Chest x-ray without consolidation or infiltrate to suggest pneumonia, no pleural effusions. D-Dimer <150 not consistent with pulmonary embolism. TSH within normal range. Atypical chest pain in 2 days, may be musculoskeletal in nature which I reviewed with patient, advised outpatient follow-up with primary care provider as well as strict return precautions, but she has a nonspecific symptom, no acute abnormalities as aforementioned, additionally outpatient follow-up. Stable an ambulatory with steady gait, agreeable with plan of care for discharge. Differential Diagnosis Differential Diagnoses: The differential diagnosis associated with the presentation includes (See narrative above) Admission/Observation Consideration of admission/observation: Escalation of care including admission/observation considered (See narrative above and course narrative for further detail) Lab Data [facility] Lab Attestation statement: I reviewed the patient's lab results. 05/06/25 12:14 05/06/25 12:14 Labs: Lab Results 05/06/25 05/06/25 Range/Units 12:14 16:13 WBC 8.9 (4.8-10.8) X10*3/uL RBC 4.54 (4.20-5.50) X10*6/uL Hgb 13.6 (12.0-16.0) g/dl Hct 40.3 (37.0-47.0) % MCV 88.8 (80.0-98.0) fL MCH 30.0 (27.0-33.0) pg MCHC 33.7 (31.0-35.0) g/dl RDW 13.1 (11.0-16.0) % Plt Count 328 (160-400) X10*3/uL MPV 8.9 L (9.4-12.3) fL Immature Gran % (Auto) 0.5 H (0.0-0.4) % Neut % (Auto) 67.9 (45-73) % Lymph % (Auto) 24.5 (20-40) % [place] % (Auto) 5.6 (2-11) % Eos % (Auto) 1.2 (0-4) % Baso % (Auto) 0.3 (0-2) % Lymph # (Auto) 2.2 (1.2-4.9) X10*3/uL [place] # (Auto) 0.5 (0.1-1.2) X10*3/uL Eos # (Auto) 0.1 (0.0-0.4) X10*3/uL Baso # (Auto) 0.0 (0.0-0.2) X10*3/uL Abs Immat Gran (auto) 0.04 H (0.00-0.03) X10*3/uL Absolute Neuts (auto) 6.0 (2.0-8.3) x10*3/uL Absolute Nucleated RBC 0.000 (0.0-0.012) X10*3/uL Nucleated RBC % (auto) 0.0 (0.0-0.2) /100WBC D-Dimer High Sensitivty < 150 NG/ML Sodium 140 (135-145) mmol/L Potassium 3.6 (3.3-5.1) mmol/L Chloride 109 H (96-108) mmol/L Carbon Dioxide 25 (22-29) mmol/L Anion Gap 10 L (12-20) BUN 7 L (9-16) mg/dL Creatinine 0.78 (0.5-1.4) mg/dL Estim Creat Clear Calc 105.7 Estimated GFR > 60 Random Glucose 107 (60-115) mg/dL Calcium 9.1 D (8.4-10.2) mg/dL Magnesium 2.0 (1.6-2.6) mg/dL Total Bilirubin 0.3 (0.0-1.0) mg/dL Direct Bilirubin 0.1 (0.0-0.5) mg/dL AST 18 (5-31) U/L ALT 13 (0-31) U/L Alkaline Phosphatase 68 (39-117) U/L Troponin I High Sens < 2.7 (<3.5-17.0) ng/L Total Protein 7.0 (6.5-8.0) g/dL Albumin 4.5 (3.5-5.0) g/dL TSH 1.03 (0.32-4.0) uIU/mL Influenza Type A (PCR) NEGATIVE (Negative) Influenza Type B (PCR) NEGATIVE (Negative) RSV RNA Qual (PCR) NEGATIVE (Negative) SARS-CoV-2 RNA (RT-PCR) NEGATIVE (Negative) Independent Interpretation I performed an independent interpretation of an: EKG (See narrative above) and Plain X-Ray (See narrative above) Radiology Impression Discussion of test interpretation with radiology: I have reviewed the radiologist's reading. Radiologist Impression: 2 view chest x-ray. Comparison: None Findings: Normal lung volumes. Lungs are clear. No pneumothorax or pleural effusion. Heart size normal. No passive venous congestion. No midline shift or tracheal deviation. No acute fracture. Impression: 1. No acute cardiopulmonary disease. External Record Review External record reviewed: Outpatient record Chronic Conditions Patient?s care impacted by: Other (See narrative above) Discharge Plan Discharge Clinical Impression: Chest pain Patient Disposition: Home, Self-Care Instructions: Chest Pain (ED) Additional Instructions: As discussed, blood work today is very reassuring including testing that is screen for a blood clot, your thyroid function, no sign of anemia or elevated white blood cell count to suggest an infection. Electrolytes were good. Kidney function was normal. Troponin, a marker for damage to heart muscle was normal an EKG as well as not show concerning findings. Viral tests were negative. Chest x-ray does not show any evidence of pneumonia or abnormal findings. Please be sure to rest over the next few days, follow-up with your primary care provider. Return with any new or worsening symptoms or concerns Prescriptions: No Action citalopram 20 mg tablet 20 mg PO DAILY Qty: 30 3RF albuterol sulfate 90 mcg/actuation HFA aerosol inhaler 2 puff inhalation Q4-6H PRN (Reason: shortness of breath or wheezing) 30 Days Qty: 8.5 0RF atomoxetine 40 mg capsule 40 mg PO QAM polymyxin B sulf-trimethoprim 10,000 unit- 1 mg/mL drops 1 drp ophthalmic (eye) QID 5 Days Qty: 10 0RF Rx Instructions: while awake; do not exceed 6 doses in 24 hours L norgest/e.estradiol-e.estrad 0.15 mg-30 mcg (84)/10 mcg (7) tablets,dose pack,3 month 1 tab PO DAILY 90 Days Qty: 90 4RF Referrals: Physician,None [Primary Care Provider] - Interventions: ED Discharge Assessment Last Done: 05/06/25 19:17 Discharge Date/Time: 05/06/25 19:18 Print Language: Montserratian
[2025-05-06 12:25] LABS: MANUAL DIFF FLAG NO
[2025-05-06 12:26] LABS: Basophils Percent Auto 0.3 % (0-2); Eosinophils Absolute Auto 0.1 X10*3/uL (0.0-0.4); Eosinophils Percent Auto 1.2 % (0-4); Hematocrit 40.3 % (37.0-47.0); Hemoglobin 13.6 g/dl (12.0-16.0); Imm Gran Abs Auto 0.04 X10*3/uL (0.00-0.03); Imm Gran Pct Auto 0.5 % (0.0-0.4); Lymphocytes Absolute Auto 2.2 X10*3/uL (1.2-4.9); Lymphocytes Percent Auto 24.5 % (20-40); Mean Corpuscular HGB Conc 33.7 g/dl (31.0-35.0); Mean Corpuscular Volume 88.8 fL (80.0-98.0); Mean Platelet Volume 8.9 fL (9.4-12.3); Monocytes Absolute Auto 0.5 X10*3/uL (0.1-1.2); Monocytes Percent Auto 5.6 % (2-11); Neutrophils Percent Auto 67.9 % (45-73); Platelet Count 328 X10*3/uL (160-400); Red Blood Count 4.54 X10*6/uL (4.20-5.50); Red Cell Distribution Width 13.1 % (11.0-16.0); White Blood Count 8.9 X10*3/uL (4.8-10.8)
[2025-05-06 12:42] LABS: Alanine Aminotransferase 13 U/L (0-31); Albumin Level 4.5 g/dL (3.5-5.0); Alkaline Phosphatase 68 U/L (39-117); Anion Gap 10 (12-20); Aspartate Amino Transferase 18 U/L (5-31); Bilirubin Direct 0.1 mg/dL (0.0-0.5); Bilirubin Total 0.3 mg/dL (0.0-1.0); Blood Urea Nitrogen 7 mg/dL (9-16); Calcium 9.1 mg/dL (8.4-10.2); Carbon Dioxide 25 mmol/L (22-29); Chloride 109 mmol/L (96-108); Creatinine Clr Calc Pharmacy 105.7; Estimated Glomerular Filt Rate > 60; Glucose Random 107 mg/dL (60-115); Potassium 3.6 mmol/L (3.3-5.1); Sodium 140 mmol/L (135-145)
[2025-05-06 13:00] LABS: Troponin-I High Sensitivity < 2.7 ng/L (<3.5-17.0)
[2025-05-06 14:02] LABS: Influenza A PCR NEGATIVE (Negative); Influenza B PCR NEGATIVE (Negative); Resp Syncy Virus RNA Qual PCR NEGATIVE (Negative); SARS COV2 PCR INHOUSE NEGATIVE (Negative)
[2025-05-06 17:33] LABS: Thyroid Stimulating Hormone 1.03 uIU/mL (0.32-4.0)
[2025-05-06 18:17] VITALS: BP 131/83; PULSE 71; RESP 18; TEMP 37.1; O2SAT 95
[2025-05-06 18:39] LABS: D Dimer High Sensitivity < 150 NG/ML
[2025-05-06 19:17] VITALS: BP 131/83; PULSE 72; RESP 18; TEMP 37.1; O2SAT 95
== END 2025-05-06 19:18 | disposition home or self-care (01) ==
PROVIDERS: Nurse Practitioner Family; Physician Assistant; Emergency Provider Emergency Medicine
DX: R07.9 Chest pain, unspecified (principal); M79.602 Pain in left arm; M79.601 Pain in right arm; J45.909 Unspecified asthma, uncomplicated; Z03.818 Encounter for observation for suspected exposure to other biological agents ruled out
CPT/HCPCS: 0241U; 36415; 71046; 80048; 80076; 83735; 84443; 84484; 85025; 85379; 93005; 99283; 99285

== ENCOUNTER → 2025-05-06 11:56 | Outpatient (BNV) | payer OTHER, SELFPAY | PROVIDERS: Emergency Provider Emergency Medicine; Visit Provider Internal Medicine Cardiovascular Disease | DX: R94.31 Abnormal electrocardiogram [ECG] [EKG] (principal); R07.89 Other chest pain | CPT/HCPCS: 93010 ==

== ENCOUNTER → 2025-05-06 12:07 | Outpatient (BNV) | payer OTHER, SELFPAY | PROVIDERS: Visit Provider Radiology Diagnostic Radiology | DX: R07.9 Chest pain, unspecified (principal) | CPT/HCPCS: 71046 ==

== ENCOUNTER 2025-09-10 08:45 | Outpatient (AMB) | payer OTHER, SELFPAY ==
--- OUTSIDE RECORDS SUMMARY | 2025-09-10 08:50 | XMS_ITS | Encounter Summary ---
Author Organization [facility] Address [address] [place] [phone] Phone Care Team Providers Care Coverstitch Machine Operator Name Role Phone Claudia Atkins NP Primary Care Provider Elana bennett Encounter Details Date Type Department Care Team (Late st Contact Info) Description 07/15/2017 Conversion Encounter [facility] - [address] [id number] Social History Tobacco Use Types Packs/Day Years [...] on filedocumented in this encounter Care Teams Coverstitch Machine Operator Relationship Specialty Start Date End Date Claudia Atkins NP PCP - General 07/09/17 03/10/23 documented as of this encounter
--- OUTSIDE RECORDS SUMMARY | 2025-09-10 08:50 | XMS_ITS | Clinical Summary ---
Author Organization [facility] Address [address] [place] [address] Phone Care Team Providers Care Service Center Supervisor Name Role Phone Unavailable Primary Care Provider [...] 68 12/02/2010 12:00 AM EST Temperature 36.3 C (97.4 F) 12/02/2010 12:00 AM EST Respiratory Rate - - Oxygen Saturation - [...] 06/24/1995, Additional history exists Influenza Vaccines (#1) 2025 12/02/19, 11/20/2009, 11/20/2008, Additional history exists COVID-19 Vaccine ( season) 2025 HIB Vaccines Completed 11/14/1992, 10/01, 1991, Additional [...] complete this topic Procedures * Due to [place] law, this organization might not be sharing sensitive test results. Procedure Name Priority Date/Time Associated Diagnosis Comments CHLAMYDIA AND GONORRHEA, AMPLIFIED Routine 12/03/2010 1:09 PM EST from Last 3 Months or Most Recently Relevant to Health Maintenance Results * Due to [place] law, this organization might not be sharing sensitive test results. * Chlamydia and Gonorrhoea, Amplified (12/03/2010 1:09 PM EST) URINE GC AMP PROBE NEGATIVE [facility] Comment: NO NEISSERIA GONORRHOEAE RNA DETECTED IN THIS PATIENT'S SAMPLE. (REFERENCE RANGE/NORMAL VALUE: NOT DETECTED) NOTE: THIS TEST USES LUMBER BEARER MEDIATED AMPLIFICATION METHOD TO DETECT rRNA FROM [...] OTHER AGENTS. URINE CHLAMYDIA AMP PROBE NEGATIVE [facility] Comment: NO CHLAMYDIA TRACHOMATIS RNA DETECTED IN THIS PATIENT'S SAMPLE. (REFERENCE RANGE/NORMAL VALUE: NOT DETECTED) 12/03/2010 1:09 PM EST Narrative [facility] - 12/03/2010 1:09 PM EST URINE CHLAMYDIA GC AMP PROBE us Claudia Atkins NP LAB MICROBIOLOGY - GENERAL OR DERABLES Final Result [facility] [address] [place] [address], from Last 3 Months or Most Recently Relevant to Health Maintenance
--- NOTE | 2025-09-10 08:53 | A.OFFPC_ITS ---
Vital Signs 09/10/25 08:54 Height 5 ft 5 in Weight 178 lb BMI 29.6 BP 120/60 Blood Pressure Location Lt brachial Position Sitting Pulse 102 H Pulse Source Pulse Oximeter Temp 97.3 F Temp Source Temporal Artery Scan Pulse Oximetry (%) 100 Oxygen Delivery Method Room Air Intake Visit Reasons: shannan Dr Guadarrama/annual exam Intake Note: Patient is here today for a physical and SHANNAN from Dr GUADARRAMA. Reconsignment Clerk Required: No Dancer Or Choreographer: Present Accompanied by: Dependent of Minor Dependent Allergies No Known Allergies (No Known Allergies*) Allergy (Verified 09/10/25 08:54) Tobacco use date assessed: 09/10/25 Dental Screening Dental Screen Date: 09/10/25 Did you have a dental visit in the last 12 months?: No Did you have a dental problem in the last 6 months where you did not have access to dental care?: No Was dental information given to patient?: Patient has dentist HPI HPI Comments History of Present Illness Details The patient is a 35-year-old female presenting for an annual wellness visit with concerns about hypoglycemia, hormonal imbalance, and acne. The patient reports symptoms suggestive of hypoglycemia, including shakiness, weakness, sweating, and dizziness if she does not eat every three hours. These symptoms improve 15 to 20 minutes after eating. She experiences these symptoms frequently, especially during activities such as face painting at parties, necessitating a break to eat before driving home. The patient is concerned about a possible hormonal imbalance due to symptoms such as severe acne, difficulty losing weight despite a caloric deficit and exercise, mood swings, hair thinning, night sweats, and low libido. She has been taking vitamins and recently started hydroxyzine for sleep issues. Her nails are brittle, and she experiences anxiety-related picking, which exacerbates her acne and psoriasis. The patient has a history of anxiety and is currently taking atomoxetine for ADHD, citalopram for anxiety, and hydroxyzine for sleep. She reports that these medications are helpful. She also has asthma and uses albuterol, for which she requested a refill. [facility] Medical History Asthma Nausea Physical exam Surgical History No pertinent past surgical history Family History Mother No problems noted. Father No problems noted. Maternal Aunt Breast cancer Social History Housing: Apartment Alcohol intake: never Patient Tobacco Use Status: Never used Tobacco Tobacco use type: Cigarette e-Cigarette/Vaping Use: Never Used Second Hand Smoke Exposure: No service: No Current occupational status: employed Gender identity: Female Cognitive needs: No Hearing needs: No Vision needs: No Female Reproductive History Menstrual Age of Menarche: 17 Questionnaire PHQ-9 Over the last 2 weeks, how often have you been bothered by any of the following problems? 1. Little interest or pleasure in doing things: several days 2. Feeling down, depressed, or hopeless: several days 3. Trouble falling or staying asleep, or sleeping too much: more than half the days 4. Feeling tired or having little energy: not at all 5. Poor appetite or overeating: several days 6. Feeling bad about yourself - or that you are a failure or have let yourself or your family down: several days 7. Trouble concentrating on things, such as reading the newspaper or watching television: not at all 8. Moving or speaking so slowly that other people could have noticed. Or the opposite - being so fidgety or restless that you have been moving around a lot more than usual: more than half the days 9. Thoughts that you would be better off or of hurting yourself in some way: not at all Total score: 8 Depression Screening Interpretation: Positive (Seeing psychology and psychiatry. ) Depression Screening Follow-up: Existing condition (In treatment) and In treatment Depression Screening Done: Yes Source: Developed by Drs. Tarun Rowan, Ernestine Fine, Domingo Bass and colleagues, with an educational chaz from [employer]. Thrive Questionnaire Date Thrive assessed: 09/10/25 I am a: Patient What is your living situation today?: I have a steady place to live Within the past 12 months, did the food you bought not last and you didn't have the money to get more?: Never true Within the past 12 months, did you worry whether your food would run out before you got money to buy more?: Never true Do you have trouble paying for medicines?: No Do you have trouble getting transportation to medical appointments?: No Do you have trouble paying your heating and electricity bill?: No Do you have trouble taking care of your child, family member or friend?: No Do you have trouble with day-to-day activities such as bathing, preparing meals, shopping, managing finances, etc.?: No Are you currently unemployed and looking for a job?: No Are you interested in more education?: No Please select the resources that you would like help with: None Currently or been in a relationship where the following occur: No concerns reported THRIVE Score: 0 AUDIT C Alcohol Use Questionnaire (AUDIT-C) 1. How often do you have a drink containing alcohol?: Never Total Score: 0 EMELY-7 AMB Questionnaire EMELY-7 Date EMELY - 7 assessed: 09/10/25 Feeling nervous, anxious, or on edge: 1 = Several days Not being able to stop or control worryin = Several days Worrying too much about different things: 1 = Several days Trouble relaxin = Several days Being so restless that it is hard to sit still: 1 = Several days Becoming easily annoyed or irritable: 1 = Several days Feeling afraid as if something awful might happen: 1 = Several days Total EMELY-7 score (0-4 normal; 5-9 mild; 10-14 moderate; 15-21 severe): 7 Source: Developed by Drs. Tarun Rowan, Ernestine Fine, Domingo Bass and colleagues, with an educational chaz from [employer]. Review of Systems Const Details: Positives besides what was mentioned in HPI are in BOLD Constitutional: No Weight Change, No Fever, No Chills, No Night Sweats, No Fatigue, No Malaise ENT/Mouth: No Hearing Changes, No Ear Pain, No Nasal Congestion, No Sinus Pain, No Hoarseness, No sore throat, No Rhinorrhea, No Swallowing Difficulty Eyes: No Eye Pain, No Swelling, No Redness, No Foreign Body, No Discharge, No Vision Changes Cardiovascular: No Chest Pain, No SOB, No PND, No Dyspnea on Exertion, No Orthopnea, No Claudication, No Edema, No Palpitations Respiratory: No Cough, No Sputum, No Wheezing, No Smoke Exposure, No Dyspnea Gastrointestinal: No Nausea, No Vomiting, No Diarrhea, No Constipation, No Pain, No Heartburn, No Anorexia, No Dysphagia, No Hematochezia, No Melena, No Flatulence, No Jaundice Genitourinary: No Dysmenorrhea, No DUB, No Dyspareunia, No Dysuria, No Urinary Frequency, No Hematuria, No Urinary Incontinence, No Urgency, No Flank Pain, No Urinary Flow Changes, No Hesitancy Musculoskeletal: No Arthralgias, No Myalgias, No Joint Swelling, No Joint Stiffness, No Back Pain, No Neck Pain, No Injury History Skin: No Skin Lesions, No Pruritis, No Hair Changes, No Breast/Skin Changes, No Nipple Discharge Neuro: No Weakness, No Numbness, No Paresthesias, No Loss of Consciousness, No Syncope, No Dizziness, No Headache, No Coordination Changes, No Recent Falls Psych: No Anxiety/Panic, No Depression, No Insomnia, No Personality Changes, No Delusions, No Rumination, No SI/HI/AH/VH, No Social Issues, No Memory Changes, No Violence/Abuse Hx., No Eating Concerns Heme/Lymph: No Bruising, No Bleeding, No Transfusions History, No Lymphadenopathy Endocrine: No Polyuria, No Polydipsia, No Temperature Intolerance Physical exam (Primary Care) Vital Signs: Last Vital Signs Temp 97.3 F 09/10/25 08:54 Pulse 102 H 09/10/25 08:54 BP 120/60 09/10/25 08:54 Pulse Ox 100 09/10/25 08:54 Oxygen Delivery Method Room Air 09/10/25 08:54 BMI result Body Mass Index 29.6 Tobacco/Smoking Status: Tobacco use Status Tobacco use date assessed 09/10/25 09/10/25 09:00 Patient Tobacco Use Status Never used Tobacco 09/10/25 09:00 Tobacco use type Cigarette 09/10/25 09:00 e-Cigarette/Vaping Use Never Used 09/10/25 09:00 PHQ-9: PHQ-9 Score PHQ-9: Total score 8 09/10/25 09:20 Depression Screening Interpretation: Positive (Seeing psychology and psychiatry. ) Depression Screening Follow-up: Existing condition (In treatment) and In treatment Thrive Assessment: Date of Thrive Assessment Date Thrive assessed 09/10/25 09/10/25 09:00 Currently or been in a relationship where the following occur: No concerns reported Const Other: Pertinent findings are in BOLD GENERAL APPEARANCE NAD, activity normal for age, well developed/ well nourished, no cyanosis, pallor, or diaphoresis. EYES lids/conjunctiva normal. EARS/NOSE/THROAT Mucous membranes moist, nares normal, lips/teeth normal uvula midline without oral pharyngeal erythema, exudate or swelling TMs normal bilaterally. No lymphangitis/lymphedema. HEAD/NECK normocephalic atraumatic, no facial trauma, neck is supple. RESPIRATORY respiratory effort normal, speaks in full sentences, no tripod position, no accessory muscle use. Lungs clear to auscultation without rhonchi, wheezes, rales CARDIAC Regular rate and rhythm, no edema. ABDOMINAL Soft, ND/NT. No evidence of fluid wave. No pulsatile masses on exam, rebound tenderness, Leon sign or pain over Mcburney's point. MUSCLES/EXTREMITIES No abnormal range of motion, no swelling. SKIN Warm, pink and dry. No rashes, dermatoses, petechiae or lesions. NEUROLOGICAL Speech is clear and appropriate. Normal level of consciousness. Gait and coordination are normal. 5/5 strength in all extremities. PSYCH Normal mood and affect. Judgement/competence is appropriate Office Procedures Flu Questionnaire Does the patient have a severe egg allergy?: No Does the patient have severe life threatening allergies?: No Does the patient have a fever or illness today?: No Has the patient ever had Guillain-[place] Syndrome?: No Has the patient ever had any past reaction to a flu shot?: No Immunizations Fluarix [id number] (PF) 45 mcg (15 mcg x 3)/0.5 mL IM syringe Performing Provider: Jaxson Waldrop MD [facility] Administered by: FAUSTINA Beltran on 09/10/25 09:33 Dose Route Admin Location Dispensed Lot Number Expiration Date [facility] [employer] 0.5 mL IM Left Deltoid 0.5 mL [id number] 05/28/26 [id number] Revinate VIS Given Date VIS Provided VIS Publication Date 09/10/25 Single Vaccine 24 Eligibility Eligibility Date Funding Source Not [facility] Eligible 09/10/25 Private Coding Level of Care Code Est Pt Level 4 (77499) Est Pt Prev Care 18-39y(06085) Diagnoses Hypoglycemia E16.2 Healthcare maintenance Z00.00 Acne L70.9 Low libido R68.82 Asthma J45.909 Time Spent (min) 40 Assessment & Plan Assessment & Plan (1) Hypoglycemia: Code(s): E16.2 - Hypoglycemia, unspecified Category: Medical Plan: Suspected. We will check for A1C and random glucose. - Plan to monitor blood glucose levels and consider dietary adjustments. - Discussed the possibility of using a continuous glucose monitor, though insurance may not cover it for non-diabetic patients. (2) Healthcare maintenance: Code(s): Z00.00 - Encounter for general adult medical examination without abnormal findings Category: Medical Plan: CBC, CMP, Lipid panel, A1C, TSH w T4, vit D. Ordered today. Shingles 2 doses when >50 yo. NI. COVID: two doses. Completed. Tdap: due in 2026. Pneumococcal: 19-64. NI. Flu vaccine: Ordered today. Colonoscopy: 45-75. NI. AAA: 65 -75. NI. CT lun - 80. NI. HPV: Follows with obstetrics gynecology physician this year. HIV: ordered today. HBV: ordered today. HCV: ordered today. Dexa: NI Mammogram: at 40. (3) Acne: Code(s): L70.9 - Acne, unspecified Category: Medical Plan: Dermaltology referral. Advised on lifestyle modification including reducing dairy, sugar and red meat. (4) Low libido: Code(s): R68.82 - Decreased libido Category: Medical Plan: - Plan to conduct hormonal testing, including Testosterone, FSH and LH levels. - Consider referral to endocrinology if abnormalities are found. (5) Asthma: Code(s): J45.909 - Unspecified asthma, uncomplicated Category: Medical Plan: - Refill prescribed for albuterol inhaler. Plan During the visit, we discussed the patient's symptoms suggestive of hypoglycemia and the potential for hormonal imbalance. I recommended monitoring blood glucose levels and considering dietary changes to address these issues. We also talked about the possibility of using a continuous glucose monitor, though insurance coverage may be a limitation. For acne, I suggested a referral to dermatology for specialized treatment and discussed dietary modifications, such as reducing dairy intake. We reviewed the patient's current medications for anxiety and ADHD, emphasizing the importance of adherence. Additionally, we discussed the potential impact of diet on mood and anxiety levels. I prescribed a refill for the patient's albuterol inhaler and administered the flu vaccine during the visit. Orders: Orders TSH reflex Free T4 Today Z00.00 - Encounter for general adult medical examination without abnormal findings Lipid Panel Today Z00.00 - Encounter for general adult medical examination without abnormal findings IRON PROFILE Today Z00.00 - Encounter for general adult medical examination without abnormal findings Hepatitis C Antibody Reflex Today Z00.00 - Encounter for general adult medical examination without abnormal findings Hepatitis B Surface Antigen Today Z00.00 - Encounter for general adult medical examination without abnormal findings Hepatitis B Core Antibody Today Z00.00 - Encounter for general adult medical examination without abnormal findings Vitamin D 25-OH (D2 and D3) Today Z00.00 - Encounter for general adult medical examination without abnormal findings Testosterone, Free/Total Today Z00.00 - Encounter for general adult medical examination without abnormal findings Influenza [id number] Immunization Today Z23 - Encounter for immunization Complete Blood Count Auto Diff Today Z00.00 - Encounter for general adult medical examination without abnormal findings Comprehensive Met. Panel Today Z00.00 - Encounter for general adult medical examination without abnormal findings HIV Ab/Ag Today Z00.00 - Encounter for general adult medical examination without abnormal findings Hepatitis B Surface Antibody Today Z00.00 - Encounter for general adult medical examination without abnormal findings Hemoglobin A1c Today Z00.00 - Encounter for general adult medical examination without abnormal findings Referrals Dermatology Referral L70.9 - Acne, unspecified Medications: New [Freestyle Tracie continuous Blood sugar monitor] As directed 1 ea 0RF Refilled albuterol sulfate 90 mcg/actuation 2 puffs inhalation Q4-6H PRN 8.5 grams 0RF shortness of breath or wheezing 30 days
[2025-09-10 08:54] VITALS: BP 120/60; PULSE 102; TEMP 36.3; O2SAT 100; BMI 29.6
== END 2025-09-10 09:36 | disposition home or self-care (01) ==
LOC: HO.HMCH 08:46
PROVIDERS: PCP Internal Medicine; Visit Provider Internal Medicine
DX: Z00.00 Encounter for general adult medical examination without abnormal findings (principal); E16.2 Hypoglycemia, unspecified; L70.9 Acne, unspecified; R68.82 Decreased libido; J45.909 Unspecified asthma, uncomplicated; Z23 Encounter for immunization

== ENCOUNTER → 2025-09-10 08:45 | Outpatient (BNVA) | payer OTHER, SELFPAY | PROVIDERS: Visit Provider Internal Medicine | DX: Z00.00 Encounter for general adult medical examination without abnormal findings (principal); E16.2 Hypoglycemia, unspecified; L70.9 Acne, unspecified; R68.82 Decreased libido; J45.909 Unspecified asthma, uncomplicated; Z23 Encounter for immunization | CPT/HCPCS: 90471; 90656; 99212; 99395 ==

== ENCOUNTER 2025-09-15 10:14 | Outpatient (REF) | payer OTHER, SELFPAY ==
--- OUTSIDE RECORDS SUMMARY | 2025-09-15 10:16 | XMS_ITS | Encounter Summary ---
Author Organization [facility] Address [address] [place] [id number] Phone Care Team Providers Care State Archivist Name Role Phone Claudia Atkins NP Primary Care Provider Elana bennett Encounter Details Date Type Department Care Team (Late st Contact Info) Description 07/15/2017 Conversion Encounter [facility] - [address] [address] Social History Tobacco Use Types Packs/Day Years [...] on filedocumented in this encounter Care Teams State Archivist Relationship Specialty Start Date End Date Claudia Atkins NP PCP - General 07/09/17 03/10/23 documented as of this encounter
--- OUTSIDE RECORDS SUMMARY | 2025-09-15 10:16 | XMS_ITS | Clinical Summary ---
Author Organization [facility] Address [address] [place] [address] Phone Care Team Providers Care Church History Teacher Name Role Phone Unavailable Primary Care Provider [...] topic Procedures * Due to [place] [employer] law, this organization might not be sharing sensitive test results. Procedure Name Priority Date/Time Associated Diagnosis Comments CHLAMYDIA AND GONORRHEA, AMPLIFIED Routine 12/03/2010 1:09 PM EST from Last 3 Months or Most Recently Relevant to Health Maintenance Results * Due to [place] [employer] law, this organization might not be sharing sensitive test results. * Chlamydia and Gonorrhoea, Amplified (12/03/2010 1:09 PM EST) URINE GC AMP PROBE NEGATIVE [facility] Comment: NO NEISSERIA GONORRHOEAE RNA DETECTED IN THIS PATIENT'S SAMPLE. (REFERENCE RANGE/NORMAL VALUE: NOT DETECTED) NOTE: THIS TEST USES EDUCATION ADVISER MEDIATED AMPLIFICATION METHOD TO DETECT rRNA FROM [...] OTHER AGENTS. URINE CHLAMYDIA AMP PROBE NEGATIVE [facility] Comment: NO CHLAMYDIA TRACHOMATIS RNA DETECTED IN THIS PATIENT'S SAMPLE. (REFERENCE RANGE/NORMAL VALUE: NOT DETECTED) 12/03/2010 1:09 PM EST Narrative [facility] - 12/03/2010 1:09 PM EST URINE CHLAMYDIA GC AMP PROBE us Claudia Atkins NP LAB MICROBIOLOGY - GENERAL OR DERABLES Final Result [facility] [address] [place] [address], from Last 3 Months or Most Recently Relevant to Health Maintenance
[2025-09-15 10:40] LABS: MANUAL DIFF FLAG NO
[2025-09-15 10:55] LABS: Hematocrit 40.7 % (37.0-47.0); Hemoglobin 13.9 g/dl (12.0-16.0); Imm Gran Abs Auto 0.05 X10*3/uL (0.00-0.03); Imm Gran Pct Auto 0.6 % (0.0-0.4); Lymphocytes Absolute Auto 2.5 X10*3/uL (1.2-4.9); Mean Corpuscular HGB Conc 34.2 g/dl (31.0-35.0); Mean Corpuscular Hemoglobin 29.9 pg (27.0-33.0); Mean Corpuscular Volume 87.5 fL (80.0-98.0); NRBC Abs Auto 0.000 X10*3/uL (0.0-0.012); NRBC Pct Auto 0.0 /100WBC (0.0-0.2); Platelet Count 300 X10*3/uL (160-400); Red Blood Count 4.65 X10*6/uL (4.20-5.50); White Blood Count 8.8 X10*3/uL (4.8-10.8)
[2025-09-15 11:42] LABS: Alanine Aminotransferase 12 U/L (0-31); Albumin Level 4.5 g/dL (3.5-5.0); Alkaline Phosphatase 70 U/L (39-117); Anion Gap 14 (12-20); Aspartate Amino Transferase 18 U/L (5-31); Blood Urea Nitrogen 10 mg/dL (9-16); Calcium 9.2 mg/dL (8.4-10.2); Carbon Dioxide 22 mmol/L (22-29); Chloride 107 mmol/L (96-108); Cholesterol 179 mg/dL (<200); Estimated Glomerular Filt Rate > 60; HDL Cholesterol 43 mg/dL (>40); Iron 99 mcg/dL (30-160); Percent Iron Saturation 28 % (15-50); Potassium 3.9 mmol/L (3.3-5.1); Sodium 139 mmol/L (135-145); Total Iron Binding Capacity 359 mcg/dL (228-428); Total Protein 7.2 g/dL (6.5-8.0); Triglycerides 122 mg/dL (<150); Unsaturated Iron Binding 260 ug/dL
[2025-09-17 08:49] LABS: HBS Num1 > 1000.00 mIU/mL (0-7.99); HBc Num1 0.06 S/CO (0.00-0.79); HBsAGNum1 0.38 S/CO (0.00-0.99); HIV Num 1 0.08 S/CO (0.00-0.99); Hepatitis B Surface Antigen Negative (Negative); ~HepC Num1 0.10 S/CO (0.00-0.79); ~Hepatitis B Surface Antibody REACTIVE (Nonreactive); ~Hepatitis C Antibody Nonreactive (Nonreactive)
[2025-09-21 14:58] LABS: Vitamin D 25-OH, D2 <4 ng/mL; Vitamin D 25-OH, D3 39 ng/mL; Vitamin D 25-OH, Total 39 ng/mL (30-100)
[2025-09-22 15:34] LABS: Testosterone, Free 1.0 pg/mL (0.1-6.4)
== END 2025-09-15 10:15 | disposition home or self-care (01) ==
LOC: HO.LAB 10:14
PROVIDERS: PCP Internal Medicine; Visit Provider Internal Medicine
DX: Z00.00 Encounter for general adult medical examination without abnormal findings (principal); Z11.4 Encounter for screening for human immunodeficiency virus [HIV]; Z11.59 Encounter for screening for other viral diseases
CPT/HCPCS: 36415; 80053; 80061; 82306; 83036; 83540; 84402; 84403; 84443; 85025; 86704; 86706; 86803; 87340; 87389